=== PATIENT | female | born 1935 | race African-American/Black ===

== ENCOUNTER → 2016-07-05 | Outpatient (CLI) | payer MEDICARE, BC, OTHER | LOC: RAD 08:47 | PROVIDERS: ATTEND Internal Medicine Gastroenterology | DX: R10.9 Unspecified abdominal pain (principal) | CPT/HCPCS: 74181 ==

== ENCOUNTER → 2016-09-26 | Outpatient (CLI) | payer MEDICARE, BC, OTHER | LOC: OD 17:38 | PROVIDERS: ATTEND Internal Medicine Geriatric Medicine | DX: N39.0 Urinary tract infection, site not specified (principal) | CPT/HCPCS: 87086 ==

== ENCOUNTER 2017-04-23 15:24 | Inpatient (IN) | payer MEDICARE, BC, OTHER ==
[2017-04-23] MEDS ORDERED: ACETAMINOPHEN 325 MG TABLET PO PRN (15:59)
[2017-04-23 16:47] LABS: ABSOLUTE LYMPHOCYTES (AUTO) 1.5 10^3/uL (0.5-4.7); ABSOLUTE MONOCYTES (AUTO) 1.9 10^3/uL (0.1-1.4); ABSOLUTE NEUT (AUTO) 15.1 10^3/uL (1.7-8.2); BASOPHILS % (AUTO) 0.1 % (0-2); HEMATOCRIT 30.5 % (36.0-47.0); HEMOGLOBIN 9.9 g/dL (12.0-15.5); HGB HCT DIFFERENCE -0.8; LYMPHOCYTES % (AUTO) 8.3 % (13-45); MEAN CORPUSCULAR HGB CONC 32.3 g/dL (32.0-36.0); MEAN CORPUSCULAR VOLUME 90 fl (80-97); MONOCYTES % (AUTO) 10.4 % (3-13); RED BLOOD COUNT 3.39 10^6/uL (3.72-5.28); RED CELL DISTRIBUTION WIDTH 13.5 % (11.5-14.0); SEGMENTED NEUTROPHILS % (AUTO) 81.2 % (42-78); WHITE BLOOD COUNT 18.5 10^3/uL (4.0-10.5)
[2017-04-23] MEDS ORDERED: CEFTRIAXONE 1 GM/D5W RTU 1 GM/50 ML RTUPB IV ONE (17:00)
[2017-04-23 17:10] LABS: ALANINE AMINOTRANSFERASE 48 U/L (9-52); ALKALINE PHOSPHATASE 95 U/L (38-126); ANION GAP 13 (5-19); ASPARTATE AMINO TRANSFERASE 36 U/L (14-36); BILIRUBIN,DIRECT 0.3 mg/dL (0.0-0.4); BILIRUBIN,TOTAL 0.3 mg/dL (0.2-1.3); BLOOD UREA NITROGEN 37 mg/dL (7-20); CARBON DIOXIDE 25 mmol/L (22-30); CHLORIDE 107 mmol/L (98-107); CREATININE RESULT 1.08 mg/dL (0.52-1.25); GLUCOSE 89 mg/dL (75-110); POTASSIUM 4.3 mmol/L (3.6-5.0); SODIUM 145.3 mmol/L (137-145); TOTAL PROTEIN 6.5 g/dL (6.3-8.2)
--- NOTE | 2017-04-23 17:17 | RADIOLOGY REPORT (SQ) ---
EXAM DESCRIPTION: CHEST PA/LAT COMPLETED DATE/TIME: 04/23/2017 5:01 pm REASON FOR STUDY: chest pain COMPARISON: None. EXAM PARAMETERS: NUMBER OF VIEWS: two views TECHNIQUE: Digital Frontal and Lateral radiographic views of the chest acquired. RADIATION DOSE: NA LIMITATIONS: none FINDINGS: LUNGS AND PLEURA: No opacities, masses or pneumothorax. No pleural effusion. MEDIASTINUM AND HILAR STRUCTURES: No masses or contour abnormalities. HEART AND VASCULAR STRUCTURES: Heart normal size. No evidence for failure. BONES: No acute findings. HARDWARE: None in the chest. OTHER: No other significant finding. IMPRESSION: NO SIGNIFICANT RADIOGRAPHIC FINDING IN THE CHEST. TECHNICAL DOCUMENTATION: JOB ID: [id number] [employer]- All Rights Reserved
[2017-04-23] MEDS: NORMAL SALINE 1000 ML 1,000 ML IV PRN (18:26)
--- NOTE | 2017-04-23 18:46 | PDOC H&P ---
History of Present Illness Admission Date/PCP: 04/23/17 15:24 ELIZABETHFAISAL WATTS Patient complains of: Malodor to urine and not her usual self History of Present Illness: KATRIN FELTON is a 82 year old female know to my practice who presented to the office earlier today for routine follow up for her morbidities management but caregiver reported worsening odor and cloudiness to her urine. The career services representative reported that the patient have not been her usual self. No reported fever but experience chills and cold more than usual in recent time. No nausea or vomiting. she denied chest pain or difficulty with breathing. In view of reported symptoms her CBC with differential was completed in the office and reviewed significant leukocytosis at 19.6 K/uL. She was advised admission for further evaluation and management. Past Medical History Psychiatric Medical History: Reports: Depression Social History Smoking Status: Never Smoker - Advance Directive Resuscitation Status: Full Code Family History Parental Family History Reviewed: Yes Children Family History Reviewed: Yes Sibling(s) Family History Reviewed.: Yes Medication/Allergy Home Medications: Atenolol [Tenormin 50 mg Tablet] 50 mg PO DAILY 04/23/17 Azilsartan Med/Chlorthalidone [Edarbyclor 40-12.5 mg Tablet] 1 tab PO DAILY Donepezil HCl [Aricept 5 mg Tablet] 5 mg PO DAILY 04/23/17 Fluoxetine HCl [Prozac] 40 mg PO DAILY 04/23/17 Hydrocodone Bit/Acetaminophen [Hydrocodon-Acetaminophen 5-325] 1 tab PO Q12HP PRN 04/23/17 Hydrocodone Bitartrate [Hysingla ER] 40 mg PO DAILY 04/23/17 Lidocaine [Lidoderm 5% (700 mg) Transdermal Patch] 1 patch TOP DAILY 04/23/17 Mometasone Furoate [Nasonex] 2 spray NASL DAILY 04/23/17 Risperidone [Risperdal] 0.5 mg PO QHS 04/23/17 Simvastatin [Zocor 40 mg Tablet] 40 mg PO DAILY 04/23/17 Allergies/Adverse Reactions: No Known Allergies Allergy (Unverified 04/23/17 16:02) Review of Systems Constitutional: PRESENT: chills. 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 and multiple joints involvment with arthritis, deformity Integumentary: ABSENT: rash, wounds Neurological: PRESENT: confusion Psychiatric: ABSENT: anxiety, depression, homidical ideation, suicidal ideation Hematologic/Lymphatic: ABSENT: easy bleeding, easy bruising, lymphadenopathy Physical Exam Vital Signs: Temp Pulse Resp BP Pulse Ox 98.6 F 60 12 179/69 H 95 04/23/17 16:11 04/23/17 16:11 04/23/17 16:11 04/23/17 16:11 04/23/17 16:11 Intake & Output 04/22/17 04/23/17 04/24/17 06:59 06:59 06:59 Intake Total 250 Balance 250 Weight 86.3 kg General appearance: PRESENT: no acute distress, well-developed, well-nourished Head exam: PRESENT: atraumatic, normocephalic Eye exam: PRESENT: conjunctiva pink, EOMI, PERRLA. ABSENT: scleral icterus Mouth exam: PRESENT: moist Throat exam: ABSENT: post pharyngeal erythema, tonsillar erythema, tonsillar exudate, tonsillogmegaly, other Neck exam: PRESENT: full ROM. ABSENT: carotid bruit, JVD, lymphadenopathy, thyromegaly Respiratory exam: PRESENT: clear to auscultation regina Cardiovascular exam: PRESENT: RRR. ABSENT: diastolic murmur, rubs, systolic murmur Vascular exam: PRESENT: normal capillary refill. ABSENT: pallor GI/Abdominal exam: PRESENT: normal bowel sounds, soft. ABSENT: distended, guarding, mass, organolmegaly, rebound, tenderness Rectal exam: PRESENT: deferred Extremities exam: PRESENT: joint swelling Musculoskeletal exam: PRESENT: deformity Neurological exam: PRESENT: alert - and appropriate in simple responses, awake, abnormal gait - ambulate with wheelwalker and straight cane assistance depending on distance to walk. Psychiatric exam: PRESENT: appropriate affect, normal mood. ABSENT: homicidal ideation, suicidal ideation Skin exam: PRESENT: dry, intact, warm. ABSENT: cyanosis, rash Results Laboratory Results: 04/23/17 16:35 04/23/17 16:35 04/23/17 04/23/17 16:35 16:35 WBC 18.5 H RBC 3.39 L Hgb 9.9 L Hct 30.5 L MCV 90 MCH 29.0 MCHC 32.3 RDW 13.5 Plt Count 229 Seg Neutrophils % 81.2 H Lymphocytes % 8.3 L Monocytes % 10.4 Eosinophils % 0.0 Basophils % 0.1 Absolute Neutrophils 15.1 H Absolute Lymphocytes 1.5 Absolute Monocytes 1.9 H Absolute Eosinophils 0.0 Absolute Basophils 0.0 Sodium 145.3 H Potassium 4.3 Chloride 107 Carbon Dioxide 25 Anion Gap 13 BUN 37 H Creatinine 1.08 Est GFR ( Amer) 59 L Est GFR (Non-Af Amer) 49 L Glucose 89 Calcium 10.0 Total Bilirubin 0.3 AST 36 ALT 48 Alkaline Phosphatase 95 Total Protein 6.5 Albumin 4.0 Impressions: Chest X-Ray 04/23/17 00:00 IMPRESSION: NO SIGNIFICANT RADIOGRAPHIC FINDING IN THE CHEST. Assessment & Plan - Diagnosis (1) Probable sepsis Is this a current diagnosis for this admission?: Yes Plan: See admitting physician orders. (2) HTN (hypertension) Qualifiers: Hypertension type: essential hypertension Qualified Code(s): I10 - Essential (primary) hypertension Is this a current diagnosis for this admission?: Yes Plan: See admitting physician orders. (3) HLD (hyperlipidemia) Qualifiers: Hyperlipidemia type: pure hypercholesterolemia Qualified Code(s): E78.00 - Pure hypercholesterolemia, unspecified; E78.0 - Pure hypercholesterolemia Is this a current diagnosis for this admission?: Yes Plan: See admitting physician orders. (4) Chronic pain syndrome Is this a current diagnosis for this admission?: Yes Plan: See admitting physician orders. (5) Chronic use of opiate for therapeutic purpose Is this a current diagnosis for this admission?: Yes Plan: See admitting physician orders. (6) Senile dementia with psychosis Is this a current diagnosis for this admission?: Yes Plan: See admitting physician orders. (7) CAD S/P percutaneous coronary angioplasty Is this a current diagnosis for this admission?: Yes Plan: See admitting physician orders. (8) Osteoarthritis involving multiple joints on both sides of body Is this a current diagnosis for this admission?: Yes Plan: See admitting physician orders. - Time Time Spent: 50 to 70 Minutes Medications reviewed and adjusted accordingly: Yes Anticipated discharge: Home Within: Other - Inpatient Certification Based on my medical assessment, after consideration of the patient's comorbidities, presenting symptoms, or acuity I expect that the services needed warrant INPATIENT care.: Yes I certify that my determination is in accordance with my understanding of Medicare's requirements for reasonable and necessary INPATIENT services [42 CFR 412.3e].: Yes Medical Necessity: Need Close Monitoring Due to Risk of Patient Decompensation, Need For IV Fluids, Need For Continuous Telemetry Monitoring, Need for IV Antibiotics, Risk of Complication if Not Cared For in Hospital Post Hospital Care: D/C Spacecraft Systems Engineer Documentation - Plan Summary Plan Summary: See admitting physician orders.
[2017-04-23 18:55] LABS: APPEARANCE,URINE CLOUDY; BILIRUBIN,URINE NEGATIVE (NEGATIVE); GLUCOSE, URINE NEGATIVE (NEGATIVE); KETONES,URINE NEGATIVE (NEGATIVE); LEUKOCYTE ESTERASE,URINE LARGE (NEGATIVE); NITRITE,URINE NEGATIVE (NEGATIVE); PROTEIN,URINE 100 mg/dL (NEGATIVE); URINE SPECIFIC GRAVITY 1.015; UROBILINOGEN,URINE NEGATIVE mg/dL (<2.0)
[2017-04-23] MEDS ORDERED: (PENDING PHARMACY ID) (Risperidone [Risperdal] 0.5 MG) PO SCH (22:00)
[2017-04-23] MEDS: HYDROCODONE/ACETAMINOPHEN 5-325 MG TABLET PO PRN (22:21)
[2017-04-23] MEDS: RISPERIDONE 1 MG TABLET PO SCH (22:42)
[2017-04-24] MEDS: LANSOPRAZOLE 30 MG TAB.RAP.DR PO SCH (05:45)
[2017-04-24] MEDS: ENOXAPARIN SODIUM INJ 40 MG/0.4 ML DISP.SYRIN SUBCUT SCH (09:56)
[2017-04-24] MEDS: SIMVASTATIN 40 MG TABLET PO SCH (09:57)
[2017-04-24] MEDS: LIDOCAINE 5% (700 MG) TRANSDERMAL ADH..PATCH TOP SCH (09:57)
[2017-04-24] MEDS: FLUOXETINE HCL 20 MG CAPSULE PO SCH (09:57)
[2017-04-24] MEDS: DONEPEZIL HCL 5 MG TABLET PO SCH (09:57)
[2017-04-24] MEDS: ATENOLOL 50 MG TABLET PO SCH (09:58)
[2017-04-24] MEDS: FLUTICASONE NASAL SPRAY 50 MCG/SPRY 120 SPRAY/16 GM NASL SCH (09:58)
[2017-04-24] MEDS ORDERED: HYDROCODONE BITARTRATE 40 MG PO SCH (10:00)
[2017-04-24] MEDS ORDERED: (PENDING PHARMACY ID) (Azilsartan Med/Chlorthalidone [Edarbyclor 40-12.5 Mg Tablet] 1 TAB) PO SCH (10:00)
[2017-04-24] MEDS ORDERED: (PENDING PHARMACY ID) (Mometasone Furoate [Nasonex] 2 SPRAY) NASL SCH (10:00)
[2017-04-24] MEDS: HYDROCODONE/ACETAMINOPHEN 5-325 MG TABLET PO PRN (15:10)
--- NOTE | 2017-04-24 16:43 | PDOC PROGRESS REPORT ---
Subjective Progress Note for:: 04/24/17 Subjective:: Patient reported continue dysuria with voiding. There is nasal and sinus congestion. No headache or dizziness. No abdominal pain, nausea or vomiting. No chest pain or difficulty with breathing. Physical Exam Vital Signs: Temp Pulse Resp BP Pulse Ox 97.6 F 67 18 164/60 H 94 04/24/17 04:24 04/24/17 14:00 04/24/17 04:24 04/24/17 04:24 04/24/17 04:24 Intake & Output 04/23/17 04/24/17 04/25/17 06:59 06:59 06:59 Intake Total 1070 Output Total 300 Balance 770 Weight 86.3 kg General appearance: PRESENT: no acute distress, cooperative, well-developed, well-nourished Head exam: PRESENT: atraumatic, normocephalic Mouth exam: PRESENT: moist Respiratory exam: PRESENT: clear to auscultation regina, decreased breath sounds - at lung bases Cardiovascular exam: PRESENT: RRR. ABSENT: diastolic murmur, rubs, systolic murmur Vascular exam: PRESENT: normal capillary refill. ABSENT: pallor GI/Abdominal exam: PRESENT: normal bowel sounds, soft. ABSENT: distended, guarding, mass, organolmegaly, rebound, tenderness Extremities exam: ABSENT: pedal edema Musculoskeletal exam: PRESENT: normal inspection Neurological exam: PRESENT: alert - and appropriate in responses, awake Psychiatric exam: PRESENT: appropriate affect, normal mood. ABSENT: homicidal ideation, suicidal ideation Skin exam: PRESENT: dry, intact, warm. ABSENT: cyanosis, rash Results Laboratory Results: 04/23/17 16:35 04/23/17 16:35 04/23/17 04/23/17 04/23/17 16:35 16:35 18:30 WBC 18.5 H RBC 3.39 L Hgb 9.9 L Hct 30.5 L MCV 90 MCH 29.0 MCHC 32.3 RDW 13.5 Plt Count 229 Seg Neutrophils % 81.2 H Lymphocytes % 8.3 L Monocytes % 10.4 Eosinophils % 0.0 Basophils % 0.1 Absolute Neutrophils 15.1 H Absolute Lymphocytes 1.5 Absolute Monocytes 1.9 H Absolute Eosinophils 0.0 Absolute Basophils 0.0 Sodium 145.3 H Potassium 4.3 Chloride 107 Carbon Dioxide 25 Anion Gap 13 BUN 37 H Creatinine 1.08 Est GFR ( Amer) 59 L Est GFR (Non-Af Amer) 49 L Glucose 89 Calcium 10.0 Total Bilirubin 0.3 AST 36 ALT 48 Alkaline Phosphatase 95 Total Protein 6.5 Albumin 4.0 Urine Color YELLOW Urine Appearance CLOUDY Urine pH 5.0 Ur Specific [place] 1.015 Urine Protein 100 H Urine Glucose (UA) NEGATIVE Urine Ketones NEGATIVE Urine Blood NEGATIVE Urine Nitrite NEGATIVE Ur Leukocyte Esterase LARGE H Urine WBC (Auto) 103 Urine RBC (Auto) 2 Impressions: Chest X-Ray 04/23/17 00:00 IMPRESSION: NO SIGNIFICANT RADIOGRAPHIC FINDING IN THE CHEST. Assessment & Plan - Diagnosis (1) Probable sepsis Is this a current diagnosis for this admission?: Yes Plan: Due to Gram negative greg organism. Organism identification and sensitivity is pending at this time. Continue IV Rocephin coverage. Follow up on urine and blood culture findings. (2) HTN (hypertension) Qualifiers: Hypertension type: essential hypertension Qualified Code(s): I10 - Essential (primary) hypertension Is this a current diagnosis for this admission?: Yes (3) HLD (hyperlipidemia) Qualifiers: Hyperlipidemia type: pure hypercholesterolemia Qualified Code(s): E78.00 - Pure hypercholesterolemia, unspecified; E78.0 - Pure hypercholesterolemia Is this a current diagnosis for this admission?: Yes (4) Chronic pain syndrome Is this a current diagnosis for this admission?: Yes (5) Chronic use of opiate for therapeutic purpose Is this a current diagnosis for this admission?: Yes (6) Senile dementia with psychosis Is this a current diagnosis for this admission?: Yes (7) CAD S/P percutaneous coronary angioplasty Is this a current diagnosis for this admission?: Yes (8) Osteoarthritis involving multiple joints on both sides of body Is this a current diagnosis for this admission?: Yes (9) Allergic rhinitis, seasonal Qualifiers: Chronicity: unspecified Allergic rhinitis trigger: unspecified Qualified Code(s): J30.2 - Other seasonal allergic rhinitis Is this a current diagnosis for this admission?: Yes Plan: Continue on Fluticasone nasal spray therapy. Start on Ipratropium 0.6% nasal spray for congestion. Maintain on all other current medication management. - Time Time Spent with patient: 25-34 minutes Medications reviewed and adjusted accordingly: Yes Anticipated discharge: Home Within: Other - Inpatient Certification Based on my medical assessment, after consideration of the patient's comorbidities, presenting symptoms, or acuity I expect that the services needed warrant INPATIENT care.: Yes I certify that my determination is in accordance with my understanding of Medicare's requirements for reasonable and necessary INPATIENT services [42 CFR 412.3e].: Yes Medical Necessity: Need Close Monitoring Due to Risk of Patient Decompensation, Need For IV Fluids, Need For Continuous Telemetry Monitoring, Need for IV Antibiotics, Risk of Complication if Not Cared For in Hospital Post Hospital Care: D/C Game Agent Documentation - Plan Summary Plan Summary: Obtain CBC with diff, BMP. Continue current antibiotic coverage. See attending physician orders.
[2017-04-24 17:35] LABS: ANION GAP 9 (5-19); BLOOD UREA NITROGEN 28 mg/dL (7-20); CALCIUM 9.3 mg/dL (8.4-10.2); CARBON DIOXIDE 26 mmol/L (22-30); CHLORIDE 107 mmol/L (98-107); CREATININE RESULT 0.86 mg/dL (0.52-1.25); GLUCOSE 101 mg/dL (75-110); POTASSIUM 4.2 mmol/L (3.6-5.0); SODIUM 142.4 mmol/L (137-145)
[2017-04-24] MEDS: IPRATROPIUM BROMIDE 0.06% NASAL SPRAY 15 ML NASL SCH (18:01)
[2017-04-24] MEDS: CEFTRIAXONE 1 GM/D5W RTU 1 GM/50 ML RTUPB IV SCH (18:01)
[2017-04-24 18:48] LABS: ABSOLUTE BASOPHILS # (AUTO) 0.1 10^3/uL (0.0-0.2); ABSOLUTE EOSINOPHILS # (AUTO) 0.1 10^3/uL (0.0-0.6); ABSOLUTE LYMPHOCYTES (AUTO) 2.8 10^3/uL (0.5-4.7); ABSOLUTE MONOCYTES (AUTO) 1.3 10^3/uL (0.1-1.4); ABSOLUTE NEUT (AUTO) 7.7 10^3/uL (1.7-8.2); BASOPHILS % (AUTO) 0.5 % (0-2); EOSINOPHILS % (AUTO) 0.6 % (0-6); HEMOGLOBIN 10.2 g/dL (12.0-15.5); HGB HCT DIFFERENCE -0.4; LYMPHOCYTES % (AUTO) 23.4 % (13-45); MEAN CORPUSCULAR HEMOGLOBIN 29.4 pg (27.0-33.4); MEAN CORPUSCULAR HGB CONC 32.9 g/dL (32.0-36.0); MEAN CORPUSCULAR VOLUME 89 fl (80-97); MONOCYTES % (AUTO) 10.8 % (3-13); RED BLOOD COUNT 3.47 10^6/uL (3.72-5.28); RED CELL DISTRIBUTION WIDTH 13.1 % (11.5-14.0); SEGMENTED NEUTROPHILS % (AUTO) 64.7 % (42-78); WHITE BLOOD COUNT 11.8 10^3/uL (4.0-10.5)
[2017-04-24] MEDS: RISPERIDONE 1 MG TABLET PO SCH (21:46)
[2017-04-24] MEDS: NORMAL SALINE 1000 ML 1,000 ML IV PRN (21:48)
[2017-04-25] MEDS: LANSOPRAZOLE 30 MG TAB.RAP.DR PO SCH (05:26)
[2017-04-25] MEDS: IPRATROPIUM BROMIDE 0.06% NASAL SPRAY 15 ML NASL SCH ×3 (09:15→17:40)
[2017-04-25] MEDS: FLUOXETINE HCL 20 MG CAPSULE PO SCH (09:15)
[2017-04-25] MEDS: FLUTICASONE NASAL SPRAY 50 MCG/SPRY 120 SPRAY/16 GM NASL SCH (09:15)
[2017-04-25] MEDS: LIDOCAINE 5% (700 MG) TRANSDERMAL ADH..PATCH TOP SCH (09:15)
[2017-04-25] MEDS: ATENOLOL 50 MG TABLET PO SCH (09:15)
[2017-04-25] MEDS: ENOXAPARIN SODIUM INJ 40 MG/0.4 ML DISP.SYRIN SUBCUT SCH (09:15)
[2017-04-25] MEDS: DONEPEZIL HCL 5 MG TABLET PO SCH (09:15)
[2017-04-25] MEDS: SIMVASTATIN 40 MG TABLET PO SCH (09:15)
[2017-04-25] MEDS: HYDROCODONE/ACETAMINOPHEN 5-325 MG TABLET PO PRN ×2 (09:16→21:32)
--- NOTE | 2017-04-25 14:14 | PDOC PROGRESS REPORT ---
Subjective Progress Note for:: 04/25/17 Subjective:: Patient denied any fever or chills. No headache or dizziness. No abdominal pain , nausea or vomiting. No chest pain or difficulty with breathing. Blood pressure management remain a concern due to inadvertently missed administration of her Edarbyclor that is not on the hospital formulary. Physical Exam Vital Signs: Temp Pulse Resp BP Pulse Ox 98.9 F 71 14 174/74 H 94 04/25/17 11:48 04/25/17 11:48 04/25/17 11:48 04/25/17 11:48 04/25/17 11:48 Intake & Output 04/24/17 04/25/17 04/26/17 06:59 06:59 06:59 Intake Total 1070 1750 Output Total 300 400 Balance 770 1350 Weight 86.3 kg Physical Exam: General appearance: PRESENT: no acute distress, cooperative, well-developed, well-nourished Head exam: PRESENT: atraumatic, normocephalic Mouth exam: PRESENT: moist Respiratory exam: PRESENT: clear to auscultation regina, decreased breath sounds - at lung bases Cardiovascular exam: PRESENT: RRR. ABSENT: diastolic murmur, rubs, systolic murmur Vascular exam: PRESENT: normal capillary refill. ABSENT: pallor GI/Abdominal exam: PRESENT: normal bowel sounds, soft. ABSENT: distended, guarding, mass, organomegaly, rebound, tenderness Extremities exam: ABSENT: pedal edema Musculoskeletal exam: PRESENT: normal inspection Neurological exam: PRESENT: alert - and appropriate in responses, awake Psychiatric exam: PRESENT: appropriate affect, normal mood. ABSENT: homicidal ideation, suicidal ideation Skin exam: PRESENT: dry, intact, warm. ABSENT: cyanosis, rash Results Laboratory Results: 04/24/17 18:39 04/24/17 16:55 04/24/17 04/24/17 04/24/17 16:55 16:55 18:39 WBC Cancelled 11.8 H RBC Cancelled 3.47 L Hgb Cancelled 10.2 L Hct Cancelled 31.0 L MCV Cancelled 89 MCH Cancelled 29.4 MCHC Cancelled 32.9 RDW Cancelled 13.1 Plt Count Cancelled 219 Seg Neutrophils % Cancelled 64.7 Lymphocytes % Cancelled 23.4 Monocytes % Cancelled 10.8 Eosinophils % Cancelled 0.6 Basophils % Cancelled 0.5 Absolute Neutrophils Cancelled 7.7 Absolute Lymphocytes Cancelled 2.8 Absolute Monocytes Cancelled 1.3 Absolute Eosinophils Cancelled 0.1 Absolute Basophils Cancelled 0.1 Sodium 142.4 Potassium 4.2 Chloride 107 Carbon Dioxide 26 Anion Gap 9 BUN 28 H Creatinine 0.86 Est GFR ( Amer) > 60 Est GFR (Non-Af Amer) > 60 Glucose 101 Calcium 9.3 04/23/17 18:30 Clean Catch Midstream Urine Culture - Final Escherichia Coli Impressions: Chest X-Ray 04/23/17 00:00 IMPRESSION: NO SIGNIFICANT RADIOGRAPHIC FINDING IN THE CHEST. Assessment & Plan - Diagnosis (1) Probable sepsis Is this a current diagnosis for this admission?: Yes (2) HTN (hypertension) Qualifiers: Hypertension type: essential hypertension Qualified Code(s): I10 - Essential (primary) hypertension Is this a current diagnosis for this admission?: Yes (3) HLD (hyperlipidemia) Qualifiers: Hyperlipidemia type: pure hypercholesterolemia Qualified Code(s): E78.00 - Pure hypercholesterolemia, unspecified; E78.0 - Pure hypercholesterolemia Is this a current diagnosis for this admission?: Yes (4) Chronic pain syndrome Is this a current diagnosis for this admission?: Yes (5) Chronic use of opiate for therapeutic purpose Is this a current diagnosis for this admission?: Yes (6) Senile dementia with psychosis Is this a current diagnosis for this admission?: Yes (7) CAD S/P percutaneous coronary angioplasty Is this a current diagnosis for this admission?: Yes (8) Osteoarthritis involving multiple joints on both sides of body Is this a current diagnosis for this admission?: Yes (9) Allergic rhinitis, seasonal Qualifiers: Chronicity: unspecified Allergic rhinitis trigger: unspecified Qualified Code(s): J30.2 - Other seasonal allergic rhinitis Is this a current diagnosis for this admission?: Yes (10) E. coli urinary tract infection Is this a current diagnosis for this admission?: Yes Plan: Continue on current IV antibiotic coverage. Monitor her leukocytosis and temperature. Consider change to oral formulation in next 24 hours. - Time Time Spent with patient: 25-34 minutes Medications reviewed and adjusted accordingly: Yes Anticipated discharge: Home Within: within 48 hours - Inpatient Certification Based on my medical assessment, after consideration of the patient's comorbidities, presenting symptoms, or acuity I expect that the services needed warrant INPATIENT care.: Yes I certify that my determination is in accordance with my understanding of Medicare's requirements for reasonable and necessary INPATIENT services [42 CFR 412.3e].: Yes Medical Necessity: Need Close Monitoring Due to Risk of Patient Decompensation, Need For IV Fluids, Need For Continuous Telemetry Monitoring, Need for IV Antibiotics, Risk of Complication if Not Cared For in Hospital Post Hospital Care: D/C Global Cto Documentation - Plan Summary Plan Summary: See attending physician orders.
[2017-04-25] MEDS: CEFTRIAXONE 1 GM/D5W RTU 1 GM/50 ML RTUPB IV SCH (17:40)
[2017-04-25] MEDS: RISPERIDONE 1 MG TABLET PO SCH (21:32)
[2017-04-26] MEDS: NORMAL SALINE 1000 ML 1,000 ML IV PRN (01:26)
[2017-04-26 04:21] LABS: ABSOLUTE EOSINOPHILS # (AUTO) 0.3 10^3/uL (0.0-0.6); ABSOLUTE LYMPHOCYTES (AUTO) 3.5 10^3/uL (0.5-4.7); ABSOLUTE MONOCYTES (AUTO) 1.1 10^3/uL (0.1-1.4); ABSOLUTE NEUT (AUTO) 6.4 10^3/uL (1.7-8.2); BASOPHILS % (AUTO) 0.4 % (0-2); HEMATOCRIT 29.9 % (36.0-47.0); HEMOGLOBIN 9.4 g/dL (12.0-15.5); HGB HCT DIFFERENCE -1.7; LYMPHOCYTES % (AUTO) 30.6 % (13-45); MEAN CORPUSCULAR HEMOGLOBIN 28.4 pg (27.0-33.4); MEAN CORPUSCULAR HGB CONC 31.6 g/dL (32.0-36.0); MEAN CORPUSCULAR VOLUME 90 fl (80-97); RED BLOOD COUNT 3.33 10^6/uL (3.72-5.28); RED CELL DISTRIBUTION WIDTH 13.5 % (11.5-14.0); WHITE BLOOD COUNT 11.5 10^3/uL (4.0-10.5)
[2017-04-26] MEDS: LANSOPRAZOLE 30 MG TAB.RAP.DR PO SCH (05:28)
[2017-04-26] MEDS: ATENOLOL 50 MG TABLET PO SCH (08:42)
[2017-04-26] MEDS: AZILSARTAN MED PO SCH (08:42)
[2017-04-26] MEDS: CHLORTHALIDONE PO SCH (08:42)
[2017-04-26] MEDS: DONEPEZIL HCL 5 MG TABLET PO SCH (08:43)
[2017-04-26] MEDS: FLUOXETINE HCL 20 MG CAPSULE PO SCH (08:44)
[2017-04-26] MEDS: SIMVASTATIN 40 MG TABLET PO SCH (08:44)
[2017-04-26] MEDS: LIDOCAINE 5% (700 MG) TRANSDERMAL ADH..PATCH TOP SCH (08:45)
[2017-04-26] MEDS: IPRATROPIUM BROMIDE 0.06% NASAL SPRAY 15 ML NASL SCH ×3 (08:45→17:44)
[2017-04-26] MEDS: FLUTICASONE NASAL SPRAY 50 MCG/SPRY 120 SPRAY/16 GM NASL SCH (08:45)
[2017-04-26] MEDS: ENOXAPARIN SODIUM INJ 40 MG/0.4 ML DISP.SYRIN SUBCUT SCH (08:45)
--- NOTE | 2017-04-26 11:50 | PDOC PROGRESS REPORT ---
Subjective Progress Note for:: 04/26/17 Subjective:: Her blood pressure elevation noted this morning necessitating early administration of her blood pressure medication this morning. Daughter at bedside reported that her blood pressure have been very good at home on her current medication regimen. She denied chest pain or difficulty with her breathing. No fever or chills. No abdominal pain, nausea, or vomiting. Physical Exam Vital Signs: Temp Pulse Resp BP Pulse Ox 97.4 F 62 14 200/72 H 94 04/26/17 07:23 04/26/17 07:23 04/26/17 07:23 04/26/17 07:23 04/26/17 07:23 Intake & Output 04/25/17 04/26/17 04/27/17 06:59 06:59 06:59 Intake Total 1750 2622 Output Total 400 400 Balance 1350 2222 Physical Exam: General appearance: PRESENT: no acute distress, cooperative, well-developed, well-nourished Head exam: PRESENT: atraumatic, normocephalic Mouth exam: PRESENT: moist Respiratory exam: PRESENT: clear to auscultation regina. Cardiovascular exam: PRESENT: RRR. ABSENT: diastolic murmur, rubs, systolic murmur Vascular exam: PRESENT: normal capillary refill. ABSENT: pallor GI/Abdominal exam: PRESENT: normal bowel sounds, soft. ABSENT: distended, guarding, mass, organomegaly, rebound, tenderness Extremities exam: ABSENT: pedal edema Musculoskeletal exam: PRESENT: normal inspection Neurological exam: PRESENT: alert - and appropriate in responses, awake Psychiatric exam: PRESENT: appropriate affect, normal mood. ABSENT: homicidal ideation, suicidal ideation Skin exam: PRESENT: dry, intact, warm. ABSENT: cyanosis, rash Results Laboratory Results: 04/26/17 03:48 04/24/17 16:55 04/26/17 03:48 WBC 11.5 H RBC 3.33 L Hgb 9.4 L Hct 29.9 L MCV 90 MCH 28.4 MCHC 31.6 L RDW 13.5 Plt Count 196 Seg Neutrophils % 56.0 Lymphocytes % 30.6 Monocytes % 10.0 Eosinophils % 3.0 Basophils % 0.4 Absolute Neutrophils 6.4 Absolute Lymphocytes 3.5 Absolute Monocytes 1.1 Absolute Eosinophils 0.3 Absolute Basophils 0.0 04/23/17 18:30 Clean Catch Midstream Urine Culture - Final Escherichia Coli Impressions: Chest X-Ray 04/23/17 00:00 IMPRESSION: NO SIGNIFICANT RADIOGRAPHIC FINDING IN THE CHEST. Assessment & Plan - Diagnosis (1) Probable sepsis Is this a current diagnosis for this admission?: Yes (2) HTN (hypertension) Qualifiers: Hypertension type: essential hypertension Qualified Code(s): I10 - Essential (primary) hypertension Is this a current diagnosis for this admission?: Yes (3) HLD (hyperlipidemia) Qualifiers: Hyperlipidemia type: pure hypercholesterolemia Qualified Code(s): E78.00 - Pure hypercholesterolemia, unspecified; E78.0 - Pure hypercholesterolemia Is this a current diagnosis for this admission?: Yes (4) Chronic pain syndrome Is this a current diagnosis for this admission?: Yes (5) Chronic use of opiate for therapeutic purpose Is this a current diagnosis for this admission?: Yes (6) Senile dementia with psychosis Is this a current diagnosis for this admission?: Yes (7) CAD S/P percutaneous coronary angioplasty Is this a current diagnosis for this admission?: Yes (8) Osteoarthritis involving multiple joints on both sides of body Is this a current diagnosis for this admission?: Yes (9) Allergic rhinitis, seasonal Qualifiers: Chronicity: unspecified Allergic rhinitis trigger: unspecified Qualified Code(s): J30.2 - Other seasonal allergic rhinitis Is this a current diagnosis for this admission?: Yes (10) E. coli urinary tract infection Is this a current diagnosis for this admission?: Yes - Time Time Spent with patient: 25-34 minutes Medications reviewed and adjusted accordingly: Yes Anticipated discharge: Home with Homehealth Within: within 48 hours - Inpatient Certification Based on my medical assessment, after consideration of the patient's comorbidities, presenting symptoms, or acuity I expect that the services needed warrant INPATIENT care.: Yes I certify that my determination is in accordance with my understanding of Medicare's requirements for reasonable and necessary INPATIENT services [42 CFR 412.3e].: Yes Medical Necessity: Need Close Monitoring Due to Risk of Patient Decompensation, Need For IV Fluids, Need For Continuous Telemetry Monitoring, Need for IV Antibiotics, Risk of Complication if Not Cared For in Hospital Post Hospital Care: D/C Power Washer Documentation - Plan Summary Plan Summary: D/C IV fluid infusion. Encourage adequate oral fluid intake. Continue on IV Rocephin coverage. Start on oral Levofloxacin 500mg po daily. Follow up on blood culture findings.
[2017-04-26] MEDS: AMOXICILLIN TR/POT CLAVULANATE 500-125 MG TAB PO SCH ×2 (13:43→22:51)
[2017-04-26] MEDS ORDERED: HYDRALAZINE HCL INJ/PF 20 MG/1 ML SDV ONE (18:43)
[2017-04-26] MEDS ORDERED: HYDRALAZINE HCL INJ/PF 20 MG/1 ML SDV IV ONE (19:15)
[2017-04-26] MEDS: HYDROCODONE/ACETAMINOPHEN 5-325 MG TABLET PO PRN (22:49)
[2017-04-26] MEDS: RISPERIDONE 1 MG TABLET PO SCH (22:51)
[2017-04-27] MEDS: AMOXICILLIN TR/POT CLAVULANATE 500-125 MG TAB PO SCH (06:28)
[2017-04-27] MEDS: LANSOPRAZOLE 30 MG TAB.RAP.DR PO SCH (06:28)
[2017-04-27] MEDS: ENOXAPARIN SODIUM INJ 40 MG/0.4 ML DISP.SYRIN SUBCUT SCH (08:57)
[2017-04-27] MEDS: CHLORTHALIDONE PO SCH (09:01)
[2017-04-27] MEDS: AZILSARTAN MED PO SCH (09:01)
[2017-04-27] MEDS: ATENOLOL 50 MG TABLET PO SCH (09:01)
[2017-04-27] MEDS: LIDOCAINE 5% (700 MG) TRANSDERMAL ADH..PATCH TOP SCH (09:02)
[2017-04-27] MEDS: FLUTICASONE NASAL SPRAY 50 MCG/SPRY 120 SPRAY/16 GM NASL SCH (09:02)
[2017-04-27] MEDS: DONEPEZIL HCL 5 MG TABLET PO SCH (09:02)
[2017-04-27] MEDS: IPRATROPIUM BROMIDE 0.06% NASAL SPRAY 15 ML NASL SCH (09:02)
[2017-04-27] MEDS: FLUOXETINE HCL 20 MG CAPSULE PO SCH (09:02)
[2017-04-27] MEDS: SIMVASTATIN 40 MG TABLET PO SCH (09:03)
[2017-04-27] MEDS: HYDROCODONE/ACETAMINOPHEN 5-325 MG TABLET PO PRN (11:29)
[2017-04-27 12:56] LABS: ABSOLUTE BASOPHILS # (AUTO) 0.1 10^3/uL (0.0-0.2); ABSOLUTE EOSINOPHILS # (AUTO) 0.2 10^3/uL (0.0-0.6); ABSOLUTE LYMPHOCYTES (AUTO) 1.9 10^3/uL (0.5-4.7); ABSOLUTE NEUT (AUTO) 7.3 10^3/uL (1.7-8.2); BASOPHILS % (AUTO) 0.5 % (0-2); EOSINOPHILS % (AUTO) 2.1 % (0-6); HEMATOCRIT 32.1 % (36.0-47.0); HEMOGLOBIN 10.4 g/dL (12.0-15.5); HGB HCT DIFFERENCE -0.9; LYMPHOCYTES % (AUTO) 18.1 % (13-45); MEAN CORPUSCULAR HEMOGLOBIN 29.1 pg (27.0-33.4); MEAN CORPUSCULAR HGB CONC 32.5 g/dL (32.0-36.0); MEAN CORPUSCULAR VOLUME 90 fl (80-97); MONOCYTES % (AUTO) 9.2 % (3-13); RED BLOOD COUNT 3.58 10^6/uL (3.72-5.28); RED CELL DISTRIBUTION WIDTH 13.1 % (11.5-14.0); SEGMENTED NEUTROPHILS % (AUTO) 70.1 % (42-78); WHITE BLOOD COUNT 10.4 10^3/uL (4.0-10.5)
[2017-04-27 13:08] VITALS: BP 165/52
[2017-04-27 13:19] LABS: ANION GAP 13 (5-19); BLOOD UREA NITROGEN 17 mg/dL (7-20); CALCIUM 9.5 mg/dL (8.4-10.2); CARBON DIOXIDE 27 mmol/L (22-30); CHLORIDE 104 mmol/L (98-107); CREATININE RESULT 0.94 mg/dL (0.52-1.25); GLUCOSE 108 mg/dL (75-110); POTASSIUM 3.7 mmol/L (3.6-5.0); SODIUM 143.8 mmol/L (137-145)
--- NOTE | 2017-04-27 13:34 | PDOC DISCHARGE SUMMARY ---
General - Admit/Disc Date/PCP Admission Date/Primary Care Provider: 04/23/17 15:24 ELIZABETHFAISAL WATTS Discharge Date: 04/27/17 - Discharge Diagnosis (1) E. coli urinary tract infection Is this a current diagnosis for this admission?: Yes Summary: Improving on oral antibiotic therapy. (2) Probable sepsis Is this a current diagnosis for this admission?: Yes (3) HTN (hypertension) Is this a current diagnosis for this admission?: Yes (4) HLD (hyperlipidemia) Is this a current diagnosis for this admission?: Yes (5) Chronic pain syndrome Is this a current diagnosis for this admission?: Yes (6) Chronic use of opiate for therapeutic purpose Is this a current diagnosis for this admission?: Yes (7) Senile dementia with psychosis Is this a current diagnosis for this admission?: Yes (8) CAD S/P percutaneous coronary angioplasty Is this a current diagnosis for this admission?: Yes (9) Osteoarthritis involving multiple joints on both sides of body Is this a current diagnosis for this admission?: Yes (10) Allergic rhinitis, seasonal Is this a current diagnosis for this admission?: Yes - Additional Information Resuscitation Status: Full Code Home Medications: Atenolol [Tenormin 50 mg Tablet] 50 mg PO DAILY 04/23/17 Azilsartan Med/Chlorthalidone [Edarbyclor 40-12.5 mg Tablet] 1 tab PO DAILY Donepezil HCl [Aricept 5 mg Tablet] 5 mg PO DAILY 04/23/17 Fluoxetine HCl [Prozac] 40 mg PO DAILY 04/23/17 Hydrocodone Bit/Acetaminophen [Hydrocodon-Acetaminophen 5-325] 1 tab PO Q12HP PRN 04/23/17 Hydrocodone Bitartrate [Hysingla ER] 40 mg PO DAILY 04/23/17 Lidocaine [Lidoderm 5% (700 mg) Transdermal Patch] 1 patch TOP DAILY 04/23/17 Mometasone Furoate [Nasonex] 2 spray NASL DAILY 04/23/17 Risperidone [Risperdal] 0.5 mg PO QHS 04/23/17 Simvastatin [Zocor 40 mg Tablet] 40 mg PO DAILY 04/23/17 History of Present Illness History of Present Illness: KATRIN FELTON is a 82 year old female know to my practice who presented to the office earlier today for routine follow up for her morbidities management but caregiver reported worsening odor and cloudiness to her urine. The child care attendant reported that the patient have not been her usual self. No reported fever but experience chills and cold more than usual in recent time. No nausea or vomiting. she denied chest pain or difficulty with breathing. In view of reported symptoms her CBC with differential was completed in the office and reviewed significant leukocytosis at 19.6 K/uL. She was advised admission for further evaluation and management. Hospital Course Hospital Course: She was admitted due to significant leukocytosis with abnormal urinalysis. Her urine culture eventually grew E. coli. She was initially managed with IV Rocephin but transition to oral Augmentin based on urine culture sensitivity report. Her leukocytosis did resolved. No fever or chills. No nausea or vomiting. Tolerating oral feeding. She is agreeable to discharge home today. She will follow up in the office as instructed upon discharge. Physical Exam Vital Signs: Temp Pulse Resp BP Pulse Ox 98.8 F 69 18 165/52 H 93 04/27/17 13:07 04/27/17 13:07 04/27/17 13:07 04/27/17 13:07 04/27/17 13:07 Intake & Output 04/26/17 04/27/17 04/28/17 06:59 06:59 06:59 Intake Total 2622 1650 Output Total 400 Balance 2222 1650 Weight 79.1 kg Physical Exam: General appearance: PRESENT: no acute distress, cooperative, well-developed, well-nourished Head exam: PRESENT: atraumatic, normocephalic Mouth exam: PRESENT: moist Respiratory exam: PRESENT: clear to auscultation regina. Cardiovascular exam: PRESENT: RRR. ABSENT: diastolic murmur, rubs, systolic murmur Vascular exam: PRESENT: normal capillary refill. ABSENT: pallor GI/Abdominal exam: PRESENT: normal bowel sounds, soft. ABSENT: distended, guarding, mass, organomegaly, rebound, tenderness Extremities exam: ABSENT: pedal edema Musculoskeletal exam: PRESENT: normal inspection Neurological exam: PRESENT: alert - and appropriate in responses, awake Psychiatric exam: PRESENT: appropriate affect, normal mood. ABSENT: homicidal ideation, suicidal ideation Skin exam: PRESENT: dry, intact, warm. ABSENT: cyanosis, rash Results Laboratory Results: 04/27/17 12:14 04/27/17 12:14 04/27/17 04/27/17 12:14 12:14 WBC 10.4 RBC 3.58 L Hgb 10.4 L Hct 32.1 L MCV 90 MCH 29.1 MCHC 32.5 RDW 13.1 Plt Count 223 Seg Neutrophils % 70.1 Lymphocytes % 18.1 Monocytes % 9.2 Eosinophils % 2.1 Basophils % 0.5 Absolute Neutrophils 7.3 Absolute Lymphocytes 1.9 Absolute Monocytes 1.0 Absolute Eosinophils 0.2 Absolute Basophils 0.1 Sodium 143.8 Potassium 3.7 Chloride 104 Carbon Dioxide 27 Anion Gap 13 BUN 17 Creatinine 0.94 Est GFR ( Amer) > 60 Est GFR (Non-Af Amer) 57 L Glucose 108 Calcium 9.5 Impressions: Chest X-Ray 04/23/17 00:00 IMPRESSION: NO SIGNIFICANT RADIOGRAPHIC FINDING IN THE CHEST. Qualifiers PATEINT BEING DISCHARGED WITH ANY OF THE FOLLOWING DIAGNOSIS?: No Plan Discharge Plan: D/C home today. Follow up in the office as instructed at time of discharge. I instructed daughter at bedside to monitor patient's blood pressure at home and present record at office follow up visit. I will review and adjust her hypertension medication management as necessary. Time Spent: Less than 30 Minutes
[2017-04-27] MEDS ORDERED: PHARMACY COMMUNICATION ORDER MC SCH (22:00)
[2017-04-28] MEDS ORDERED: HYDROCODONE BITARTRATE 40 MG PO SCH (10:00)
== END 2017-04-27 13:45 | disposition home health service (06) | DRG 690 ==
LOC: 5 15:24
PROVIDERS: ADMIT Internal Medicine Geriatric Medicine; ATTEND Internal Medicine Geriatric Medicine
DX: N39.0 Urinary tract infection, site not specified (principal); I25.10 Atherosclerotic heart disease of native coronary artery without angina pectoris; F03.90 Unspecified dementia, unspecified severity, without behavioral disturbance, psychotic disturbance, mood disturbance, and anxiety; B96.20 Unspecified Escherichia coli [E. coli] as the cause of diseases classified elsewhere; I10 Essential (primary) hypertension; G89.4 Chronic pain syndrome; M15.0 Primary generalized (osteo)arthritis; F32.9 Major depressive disorder, single episode, unspecified; E78.00 Pure hypercholesterolemia, unspecified; J30.2 Other seasonal allergic rhinitis; Z79.899 Other long term (current) drug therapy; Z79.891 Long term (current) use of opiate analgesic; Z90.49 Acquired absence of other specified parts of digestive tract; Z90.710 Acquired absence of both cervix and uterus
CPT/HCPCS: 36415; 71020; 80048; 80053; 81001; 85025; 87040; 87086; 87088; 87186; J0360; J0696; J1650; J3490; J7030

== ENCOUNTER 2018-01-22 15:36 | Inpatient (IN) | payer MEDICARE, BC, OTHER ==
[2018-01-22] MEDS ORDERED: ACETAMINOPHEN 325 MG TABLET PO ONE (16:02)
--- NOTE | 2018-01-22 16:05 | ER Document Report ---
ED Medical Screen (RME) - General Chief Complaint: Urinary Problem Stated Complaint: ABNORMAL LABS Time Seen by Provider: 01/22/18 16:02 Notes: 10 years old female was sent over by Dr. eisenberg, because of general weakness and lethargy, UTI with 3 day treatment of Augmentin for UTI without improvement. White count was 15,000 initially has gone up to 20,000 today. Coughing on and off. TRAVEL OUTSIDE OF THE [place] IN LAST 30 DAYS: No - Related Data Allergies/Adverse Reactions: No Known Allergies Allergy (Unverified 04/23/17 16:02) Past Medical History Psychiatric Medical History: Reports: Hx Depression - Immunizations History of Influenza Vaccine for 03/2017 - 08/2017 Season: Yes Influenza Administration Date for 03/2017 - 08/2017 Season: 03/08/17 Physical Exam - Vital signs Vitals: Temp Pulse Resp BP Pulse Ox 99.2 F 74 16 112/44 L 95 01/22/18 15:45 01/22/18 15:45 01/22/18 15:45 01/22/18 15:45 01/22/18 15:45 Course - Vital Signs Vital signs: Temp Pulse Resp BP Pulse Ox 99.2 F 74 16 112/44 L 95 01/22/18 15:45 01/22/18 15:45 01/22/18 15:45 01/22/18 15:45 01/22/18 15:45 Doctor's Discharge - Discharge Referrals: ELIZABETH WATTS MD [Primary Care Provider] - Follow up as needed
[2018-01-22 16:58] LABS: ABSOLUTE BASOPHILS # (AUTO) 0.1 10^3/uL (0.0-0.2); ABSOLUTE EOSINOPHILS # (AUTO) 0.1 10^3/uL (0.0-0.6); ABSOLUTE LYMPHOCYTES (AUTO) 2.5 10^3/uL (0.5-4.7); ABSOLUTE NEUT (AUTO) 13.8 10^3/uL (1.7-8.2); BASOPHILS % (AUTO) 0.3 % (0-2); EOSINOPHILS % (AUTO) 0.5 % (0-6); HEMATOCRIT 30.6 % (36.0-47.0); HEMOGLOBIN 9.8 g/dL (12.0-15.5); LYMPHOCYTES % (AUTO) 13.6 % (13-45); MEAN CORPUSCULAR VOLUME 87 fl (80-97); MONOCYTES % (AUTO) 10.9 % (3-13); PLATELET COUNT 228 10^3/uL (150-450); RED BLOOD COUNT 3.51 10^6/uL (3.72-5.28); RED CELL DISTRIBUTION WIDTH 14.2 % (11.5-14.0); SEGMENTED NEUTROPHILS % (AUTO) 74.7 % (42-78); TOTAL CELLS COUNTED % (AUTO) 100 %; WHITE BLOOD COUNT 18.4 10^3/uL (4.0-10.5)
[2018-01-22 17:00] LABS: VENOUS BLOOD BASE EXCESS -1.3 mmol/L; VENOUS BLOOD PCO2 47.1 mmHg (35-63); VENOUS BLOOD PH 7.34 (7.30-7.42)
[2018-01-22 17:11] LABS: INTERNATIONAL RATION (INR) 1.01; PROTHROMBIN TIME 13.8 SEC (11.4-15.4)
[2018-01-22 17:27] LABS: ALANINE AMINOTRANSFERASE 34 U/L (9-52); ALBUMIN 3.7 g/dL (3.5-5.0); ALKALINE PHOSPHATASE 79 U/L (38-126); ANION GAP 13 (5-19); ASPARTATE AMINO TRANSFERASE 34 U/L (14-36); BILIRUBIN,DIRECT 0.3 mg/dL (0.0-0.4); BILIRUBIN,TOTAL 0.3 mg/dL (0.2-1.3); BLOOD UREA NITROGEN 43 mg/dL (7-20); CALCIUM 9.2 mg/dL (8.4-10.2); CARBON DIOXIDE 26 mmol/L (22-30); CHLORIDE 103 mmol/L (98-107); GLUCOSE 184 mg/dL (75-110); POTASSIUM 3.9 mmol/L (3.6-5.0); SODIUM 142.2 mmol/L (137-145); TOTAL PROTEIN 6.5 g/dL (6.3-8.2)
--- NOTE | 2018-01-22 18:38 | EKG REPORT ---
SEVERITY:- NORMAL ECG - SINUS RHYTHM : Confirmed by: Bam Bejarano MD 22-Jan-2018 18:38:21
[2018-01-22] MEDS ORDERED: NORMAL SALINE 1000 ML 1,000 ML IV ONE (21:00)
[2018-01-22] MEDS ORDERED: CEFTRIAXONE INJ 1000 MG VIAL IV ONE (21:00)
[2018-01-22 21:17] LABS: APPEARANCE,URINE SLIGHTLY-CLOUDY; BILIRUBIN,URINE NEGATIVE (NEGATIVE); COLOR,URINE YELLOW; GLUCOSE, URINE NEGATIVE (NEGATIVE); KETONES,URINE NEGATIVE (NEGATIVE); LEUKOCYTE ESTERASE,URINE SMALL (NEGATIVE); NITRITE,URINE NEGATIVE (NEGATIVE); PROTEIN,URINE NEGATIVE (NEGATIVE); URINE SPECIFIC GRAVITY 1.015; UROBILINOGEN,URINE NEGATIVE mg/dL (<2.0)
--- NOTE | 2018-01-22 21:59 | ER Document Report ---
ED General - General Chief Complaint: Urinary Problem Stated Complaint: ABNORMAL LABS Time Seen by Provider: 01/22/18 16:02 Cannot obtain history due to: Dementia Notes: Patient is an 82-year-old female with a past medical history of hypertension, dementia, who presents with concerns of failure of outpatient treatment with oral antibiotics for a urinary tract infection. The patient was diagnosed several days ago but has had a progressive worsening of her confusion prompting the family to bring her to the emergency department. Apparently she was going to be admitted directly by her primary care doctor but there are no beds available upstairs which is why she is coming through the emergency department. The patient herself is unable to provide meaningful history secondary to her baseline dementia. Daughter at the bedside with whom the patient lives states that over the past several days the patient has become more confused than her baseline but has otherwise not appear overall to be significantly ill. No fever , vomiting, diarrhea, cough or sputum production. She has a history of similar symptoms in the past with urinary tract infections. TRAVEL OUTSIDE OF THE [place] IN LAST 30 DAYS: No - Related Data Allergies/Adverse Reactions: No Known Allergies Allergy (Unverified 04/23/17 16:02) Past Medical History - General Information source: Relative - Social History Smoking Status: Never Smoker Frequency of alcohol use: None Drug Abuse: None Lives with: Family Family History: Reviewed & Not Pertinent Patient has suicidal ideation: No Patient has homicidal ideation: No Renal/ Medical History: Denies: Hx Peritoneal Dialysis Psychiatric Medical History: Reports: Hx Depression - Immunizations Hx Pneumococcal Vaccination: 02/07/16 Review of Systems - Review of Systems -: Yes ROS unobtainable due to patient's medical condition Physical Exam - Vital signs Vitals: Temp Pulse Resp BP Pulse Ox 99.2 F 74 16 112/44 L 95 01/22/18 15:45 01/22/18 15:45 01/22/18 15:45 01/22/18 15:45 01/22/18 15:45 Interpretation: Normal Notes: PHYSICAL EXAMINATION: GENERAL: Well-appearing, well-nourished and in no acute distress. HEAD: Atraumatic, normocephalic. EYES: Pupils equal round and reactive to light, extraocular movements intact, sclera anicteric, conjunctiva are normal. ENT: nares patent, oropharynx clear without exudates. Moderately dry mucous membranes. NECK: Normal range of motion, supple without lymphadenopathy LUNGS: Breath sounds clear to auscultation bilaterally and equal. No wheezes rales or rhonchi. HEART: Regular rate and rhythm without murmurs ABDOMEN: Soft, nontender, normoactive bowel sounds. No guarding, no rebound. No masses appreciated. EXTREMITIES: Normal range of motion, no pitting or edema. No cyanosis. NEUROLOGICAL: No focal neurological deficits. Moves all extremities spontaneously and on command. PSYCH: Oriented to person only SKIN: Warm, Dry, normal turgor, no rashes or lesions noted. Course - Re-evaluation Re-evalutation: 01/22/18 21:58 Patient presents with a white count, altered mental status in the setting of a diagnosed UTI as an outpatient that is failing to respond to outpatient antibiotics. Labs do show persistent leukocytosis. Patient is somewhat lethargic but wakes, speaks and is apparently at her baseline per the daughter the bedside. Renal function within acceptable limits. Urinalysis does not appear to show an overt urinary tract infection although this could be compromised by her being on antibiotics currently. She will be started on ceftriaxone, IV fluids. Dr. Ndiaye has admitted the patient. - Vital Signs Vital signs: Temp Pulse Resp BP Pulse Ox 97.5 F 63 18 129/55 H 96 01/23/18 04:00 01/23/18 04:00 01/23/18 04:00 01/23/18 04:00 01/23/18 04:00 - Laboratory Result Diagrams: 01/22/18 16:20 01/22/18 16:20 Laboratory results interpreted by me: 01/22/18 01/22/18 01/22/18 16:20 16:20 20:50 WBC 18.4 H RBC 3.51 L Hgb 9.8 L Hct 30.6 L RDW 14.2 H Absolute Neutrophils 13.8 H Absolute Monocytes 2.0 H BUN 43 H Est GFR ( Amer) 54 L Est GFR (Non-Af Amer) 45 L Glucose 184 H Ur Leukocyte Esterase SMALL H Discharge - Discharge Clinical Impression: Probable sepsis, E. coli urinary tract infection Condition: Fair Disposition: ADMITTED INPATIENT Admitting Provider: Zelda
[2018-01-22] MEDS ORDERED: (PENDING PHARMACY ID) (Risperidone [Risperdal] 0.5 MG) PO SCH (22:00)
[2018-01-22] MEDS ORDERED: (PENDING PHARMACY ID) (Azilsartan Med/Chlorthalidone [Edarbyclor 40-12.5 Mg Tablet] 1 TAB) PO SCH (22:00)
[2018-01-22] MEDS ORDERED: HYDROCODONE BITARTRATE 40 MG PO SCH (22:00)
[2018-01-22] MEDS: RISPERIDONE 0.25 MG TABLET PO SCH (23:10)
[2018-01-22] MEDS: SIMVASTATIN 40 MG TABLET PO SCH (23:10)
[2018-01-23] MEDS ORDERED: IMIPENEM/CILASTATIN SODIUM INJ 500 MG VIAL IV ONE (01:10)
[2018-01-23] MEDS: IMIPENEM/CILASTATIN SODIUM INJ 500 MG VIAL IV SCH ×3 (01:20→17:54)
[2018-01-23] MEDS: NORMAL SALINE 1000 ML 1,000 ML IV PRN ×2 (01:24→16:02)
[2018-01-23 08:10] LABS: ABSOLUTE EOSINOPHILS # (AUTO) 0.3 10^3/uL (0.0-0.6); ABSOLUTE LYMPHOCYTES (AUTO) 2.1 10^3/uL (0.5-4.7); ABSOLUTE MONOCYTES (AUTO) 1.3 10^3/uL (0.1-1.4); BASOPHILS % (AUTO) 0.2 % (0-2); EOSINOPHILS % (AUTO) 2.3 % (0-6); HEMATOCRIT 28.9 % (36.0-47.0); HEMOGLOBIN 9.4 g/dL (12.0-15.5); LYMPHOCYTES % (AUTO) 18.1 % (13-45); MEAN CORPUSCULAR HEMOGLOBIN 28.3 pg (27.0-33.4); MEAN CORPUSCULAR HGB CONC 32.7 g/dL (32.0-36.0); MEAN CORPUSCULAR VOLUME 87 fl (80-97); MONOCYTES % (AUTO) 11.3 % (3-13); PLATELET COUNT 194 10^3/uL (150-450); RED BLOOD COUNT 3.33 10^6/uL (3.72-5.28); SEGMENTED NEUTROPHILS % (AUTO) 68.1 % (42-78); TOTAL CELLS COUNTED % (AUTO) 100 %; WHITE BLOOD COUNT 11.8 10^3/uL (4.0-10.5)
[2018-01-23] MEDS: LANSOPRAZOLE 30 MG TAB.RAP.DR PO SCH (09:46)
[2018-01-23] MEDS: ENOXAPARIN SODIUM INJ 40 MG/0.4 ML DISP.SYRIN SUBCUT SCH (09:46)
[2018-01-23] MEDS: FLUOXETINE HCL 20 MG CAPSULE PO SCH (09:46)
[2018-01-23] MEDS ORDERED: (PENDING PHARMACY ID) (Mometasone Furoate [Nasonex] 2 SPRAY) NASL SCH (10:00)
[2018-01-23] MEDS ORDERED: HYDROCODONE BITARTRATE 40 MG PO SCH (10:00)
[2018-01-23] MEDS ORDERED: FLUTICASONE NASAL SPRAY 50 MCG/SPRY 120 SPRAY/16 GM NASL SCH (10:00)
[2018-01-23] MEDS ORDERED: (PENDING PHARMACY ID) (Azilsartan Med/Chlorthalidone [Edarbyclor 40-12.5 Mg Tablet] 1 TAB) PO SCH (10:00)
[2018-01-23] MEDS: DONEPEZIL HCL 5 MG TABLET PO SCH (10:02)
[2018-01-23] MEDS: LIDOCAINE 5% (700 MG) TRANSDERMAL ADH..PATCH TOP SCH (10:02)
[2018-01-23] MEDS: ATENOLOL 50 MG TABLET PO SCH (10:02)
[2018-01-23] MEDS: CHLORTHALIDONE PO SCH (12:40)
[2018-01-23] MEDS: AZILSARTAN PO SCH (12:40)
[2018-01-23] MEDS: IMIPENEM/CILASTATIN SODIUM 500 MG in NORMAL SALINE 100 ML IV SCH ×2 (13:30→17:47)
[2018-01-23] MEDS ORDERED: HYDROCODONE/ACETAMINOPHEN 7.5-325 MG TABLET PO PRN (13:35)
[2018-01-23] MEDS: ACETAMINOPHEN 325 MG TABLET PO PRN (13:46)
--- NOTE | 2018-01-23 19:22 | PDOC H&P ---
History of Present Illness Admission Date/PCP: 01/22/18 21:30 ELIZABETH WATTS Patient complains of: Altered mental status; UTI History of Present Illness: KATRIN FELTON is a 82 year old female known to my practice who presented to the office earlier today with daughter reporting worsening confusion with patient more out of turn in her responses than baseline and starring at the wall as if in trance. Daughter reported complince with prescribed oral antibiotic for recently diagnosed UTI. Her urine culture was reported growing ESBL E. coli with colonies in excess of 100,000 / mL and sensitive to prescribed Augmentin. Daughter denied any fever or chills, nausea, vomiting or abdominal pain. P.O intake remain poor. Her CBC in the office revealed worsening leukocytosis over 20,000. In view of her failure on oral antibiotic she was advised hospitalization. Due to unavailable inpatient bed, patient was seen in the ED and commence of IV antibiotic therapy. Her morbidities include hypertension, Hyperlipidemia, Senile Dementia with psychosis, Mixed Anxiety with Depression, Osteoarthritis with multiple joints involvement and Chronic Pain Syndrome, CAD s/p stent angioplasty, and seasonal allergic rhinitis. Past Medical History Psychiatric Medical History: Reports: Depression Social History Smoking Status: Unknown if Ever Smoked Family History Parental Family History Reviewed: Yes Children Family History Reviewed: Yes Sibling(s) Family History Reviewed.: Yes Medication/Allergy Home Medications: Azilsartan Med/Chlorthalidone [Edarbyclor 40-12.5 mg Tablet] 1 tab PO DAILY Donepezil HCl [Aricept 5 mg Tablet] 5 mg PO DAILY 04/23/17 Fluoxetine HCl [Prozac] 40 mg PO DAILY 04/23/17 Mometasone Furoate [Nasonex] 2 spray NASL DAILY 04/23/17 Risperidone [Risperdal] 0.5 mg PO QHS 04/23/17 Hydrocodone Bitartrate [Hysingla ER] 40 mg PO DAILY #30 tab.er.24h 04/27/17 Simvastatin [Zocor 40 mg Tablet] 40 mg PO DAILY #30 tablet 04/27/17 Atenolol [Tenormin] 50 mg PO DAILY 01/22/18 Hydrocodone/Acetaminophen [Hydrocodone-Acetamin 7.5-325] 1 tab PO Q12HP PRN Allergies/Adverse Reactions: No Known Allergies Allergy (Unverified 04/23/17 16:02) Review of Systems Constitutional: PRESENT: anorexia, weakness Eyes: ABSENT: visual disturbances Ears: PRESENT: hearing changes Nose, Mouth, and Throat: ABSENT: as per HPI, headache(s), mouth pain, sore throat, vertigo, other Cardiovascular: ABSENT: chest pain, dyspnea on exertion, edema, orthropnea, palpitations Respiratory: ABSENT: cough, hemoptysis Gastrointestinal: ABSENT: abdominal pain, constipation, diarrhea, hematemesis, hematochezia, nausea, vomiting Genitourinary: ABSENT: dysuria, hematuria Musculoskeletal: PRESENT: back pain, deformity - related to multiple joints involvement with arthritis Integumentary: ABSENT: rash, wounds Neurological: PRESENT: confusion, memory loss - related to senile dementia, weakness - generalized. ABSENT: as per HPI, abnormal gait, abnormal movements, abnormal speech, convulsions, dizziness, focal weakness, frequent falls, lack of coordination, numbness, paresthesias, restless legs, syncope, tingling, tremor(s), vertigo, other Psychiatric: PRESENT: anxiety, depression, hallucinations - intermittent episodes Endocrine: ABSENT: cold intolerance, heat intolerance, polydipsia, polyuria Hematologic/Lymphatic: ABSENT: easy bleeding, easy bruising, lymphadenopathy Allergic/Immunologic: PRESENT: seasonal rhinorrhea Physical Exam Vital Signs: Temp Pulse Resp BP Pulse Ox 97.8 F 67 20 139/56 H 99 01/22/18 21:16 01/22/18 21:16 01/22/18 21:16 01/22/18 21:16 01/22/18 21:16 General appearance: PRESENT: no acute distress, other - au=cutely ill looking in wheelchair during evaluation in the office Head exam: PRESENT: atraumatic, normocephalic Eye exam: PRESENT: conjunctiva pink, EOMI, PERRLA. ABSENT: scleral icterus Ear exam: PRESENT: normal external ear exam Mouth exam: PRESENT: moist Neck exam: PRESENT: full ROM. ABSENT: carotid bruit, JVD, lymphadenopathy, thyromegaly Respiratory exam: PRESENT: clear to auscultation regina, decreased breath sounds - at lung bases Cardiovascular exam: PRESENT: RRR. ABSENT: diastolic murmur, rubs, systolic murmur Vascular exam: PRESENT: normal capillary refill. ABSENT: pallor GI/Abdominal exam: PRESENT: normal bowel sounds, soft. ABSENT: distended, guarding, mass, organolmegaly, rebound, tenderness Rectal exam: PRESENT: deferred Extremities exam: ABSENT: pedal edema Musculoskeletal exam: PRESENT: deformity - related to multiple joint involvement with arthritis Neurological exam: PRESENT: altered, awake. ABSENT: alert, oriented to person, oriented to place, oriented to time, oriented to situation, reflexes normal, abnormal gait, ataxia, CN II-XII grossly intact, motor sensory deficit, normal gait, aphasic, other Psychiatric exam: PRESENT: depressed - not engaging spontenously as usual Skin exam: PRESENT: dry, intact, warm. ABSENT: cyanosis, rash Results Laboratory Results: I reviewed her lab results from office and on [email or web address] to form my medical decision on this case. Assessment & Plan - Diagnosis (1) Infection due to ESBL-producing Escherichia coli Is this a current diagnosis for this admission?: Yes Plan: See admitting attending physician orders. (2) E. coli urinary tract infection Is this a current diagnosis for this admission?: Yes Plan: See admitting attending physician orders. (3) Failure of outpatient treatment Is this a current diagnosis for this admission?: Yes Plan: See admitting attending physician orders. (4) HTN (hypertension) Qualifiers: Hypertension type: essential hypertension Qualified Code(s): I10 - Essential (primary) hypertension Is this a current diagnosis for this admission?: Yes Plan: See admitting attending physician orders. (5) HLD (hyperlipidemia) Qualifiers: Hyperlipidemia type: pure hypercholesterolemia Qualified Code(s): E78.00 - Pure hypercholesterolemia, unspecified; E78.0 - Pure hypercholesterolemia Is this a current diagnosis for this admission?: Yes Plan: See admitting attending physician orders. (6) CAD S/P percutaneous coronary angioplasty Is this a current diagnosis for this admission?: Yes Plan: See admitting attending physician orders. (7) Osteoarthritis involving multiple joints on both sides of body Is this a current diagnosis for this admission?: Yes Plan: See admitting attending physician orders. (8) Chronic pain syndrome Is this a current diagnosis for this admission?: Yes Plan: See admitting attending physician orders. (9) Chronic use of opiate for therapeutic purpose Is this a current diagnosis for this admission?: Yes Plan: See admitting attending physician orders. (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 Is this a current diagnosis for this admission?: Yes Plan: See admitting attending physician orders. - Time Time Spent: 50 to 70 Minutes Medications reviewed and adjusted accordingly: Yes Anticipated discharge: Home with Homehealth Within: Other - Inpatient Certification Based on my medical assessment, after consideration of the patient's comorbidities, presenting symptoms, or acuity I expect that the services needed warrant INPATIENT care.: Yes I certify that my determination is in accordance with my understanding of Medicare's requirements for reasonable and necessary INPATIENT services [42 CFR 412.3e].: Yes Medical Necessity: Need Close Monitoring Due to Risk of Patient Decompensation, Need For IV Fluids, Need For Continuous Telemetry Monitoring, Need for IV Antibiotics, Risk of Complication if Not Cared For in Hospital Post Hospital Care: D/C Him Clerk Documentation - Plan Summary Plan Summary: See admitting attending physician orders.
--- NOTE | 2018-01-23 19:42 | PDOC PROGRESS REPORT ---
Subjective Progress Note for:: 01/23/18 Subjective:: Patient reported improvement in her condition but very concern about her pain management. Hysinglar is non-formulary at this hospital. No nausea, vomiting or abdominal pain. Appetite and p.o intake improving. Reason For Visit: AMS,UTI,ESBL Physical Exam Vital Signs: Temp Pulse Resp BP Pulse Ox 98.8 F 64 18 137/59 H 96 01/23/18 17:23 01/23/18 17:23 01/23/18 17:23 01/23/18 17:23 01/23/18 17:23 Intake & Output 01/22/18 01/23/18 01/24/18 06:59 06:59 06:59 Intake Total 1000 2504 Balance 1000 2504 Weight 79.5 kg General appearance: PRESENT: no acute distress, obese Head exam: PRESENT: atraumatic, normocephalic Eye exam: PRESENT: conjunctiva pink, EOMI, PERRLA. ABSENT: scleral icterus Ear exam: PRESENT: normal external ear exam Mouth exam: PRESENT: moist Respiratory exam: PRESENT: clear to auscultation regina, decreased breath sounds - at lung bases Vascular exam: PRESENT: normal capillary refill. ABSENT: pallor GI/Abdominal exam: PRESENT: normal bowel sounds, soft. ABSENT: distended, guarding, mass, organolmegaly, rebound, tenderness Extremities exam: ABSENT: pedal edema Musculoskeletal exam: PRESENT: deformity - related to multiple joints involvement with arthritis., tenderness - multiple joints Neurological exam: PRESENT: alert, awake Psychiatric exam: PRESENT: appropriate affect, normal mood. ABSENT: homicidal ideation, suicidal ideation Skin exam: PRESENT: dry, intact, warm. ABSENT: cyanosis, rash Results Laboratory Results: 01/23/18 07:43 01/23/18 07:43 WBC 11.8 H RBC 3.33 L Hgb 9.4 L Hct 28.9 L MCV 87 MCH 28.3 MCHC 32.7 RDW 14.0 Plt Count 194 Seg Neutrophils % 68.1 Lymphocytes % 18.1 Monocytes % 11.3 Eosinophils % 2.3 Basophils % 0.2 Absolute Neutrophils 8.0 Absolute Lymphocytes 2.1 Absolute Monocytes 1.3 Absolute Eosinophils 0.3 Absolute Basophils 0.0 Assessment & Plan - Diagnosis (1) Infection due to ESBL-producing Escherichia coli Is this a current diagnosis for this admission?: Yes Plan: Continue IV Primaxin therapy. (2) E. coli urinary tract infection Is this a current diagnosis for this admission?: Yes Plan: Continue IV Primaxin therapy. (3) Failure of outpatient treatment Is this a current diagnosis for this admission?: Yes Plan: Continue IV Primaxin therapy. (4) HTN (hypertension) Qualifiers: Hypertension type: essential hypertension Qualified Code(s): I10 - Essential (primary) hypertension Is this a current diagnosis for this admission?: Yes Plan: See attending physician orders. (5) HLD (hyperlipidemia) Qualifiers: Hyperlipidemia type: pure hypercholesterolemia Qualified Code(s): E78.00 - Pure hypercholesterolemia, unspecified; E78.0 - Pure hypercholesterolemia Is this a current diagnosis for this admission?: Yes Plan: See attending physician orders. (6) CAD S/P percutaneous coronary angioplasty Is this a current diagnosis for this admission?: Yes Plan: See attending physician orders. (7) Osteoarthritis involving multiple joints on both sides of body Is this a current diagnosis for this admission?: Yes Plan: See attending physician orders. (8) Chronic pain syndrome Is this a current diagnosis for this admission?: Yes Plan: See attending physician orders. (9) Chronic use of opiate for therapeutic purpose Is this a current diagnosis for this admission?: Yes Plan: See attending physician orders. (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 Is this a current diagnosis for this admission?: Yes Plan: See attending physician orders. - Time Time Spent with patient: 25-34 minutes Medications reviewed and adjusted accordingly: Yes Anticipated discharge: Acute Rehab Within: Other - Inpatient Certification Based on my medical assessment, after consideration of the patient's comorbidities, presenting symptoms, or acuity I expect that the services needed warrant INPATIENT care.: Yes I certify that my determination is in accordance with my understanding of Medicare's requirements for reasonable and necessary INPATIENT services [42 CFR 412.3e].: Yes Medical Necessity: Need Close Monitoring Due to Risk of Patient Decompensation, Need For IV Fluids, Need For Continuous Telemetry Monitoring, Need for IV Antibiotics, Risk of Complication if Not Cared For in Hospital Post Hospital Care: D/C or Transfer Summary - Plan Summary Plan Summary: See attending physician orders. Daughter and patient agreed to SNF placement for short term rehab upon discharge and DNR status while on admission.
[2018-01-23] MEDS: HYDROCODONE/ACETAMINOPHEN 5-325 MG TABLET PO PRN (19:58)
[2018-01-23] MEDS: RISPERIDONE 0.25 MG TABLET PO SCH (21:48)
[2018-01-23] MEDS: SIMVASTATIN 40 MG TABLET PO SCH (21:48)
[2018-01-24] MEDS: HYDROCODONE/ACETAMINOPHEN 5-325 MG TABLET PO PRN ×4 (00:03→18:20)
[2018-01-24] MEDS: IMIPENEM/CILASTATIN SODIUM 500 MG in NORMAL SALINE 100 ML IV SCH ×4 (00:04→18:20)
[2018-01-24 05:53] LABS: ABSOLUTE EOSINOPHILS # (AUTO) 0.3 10^3/uL (0.0-0.6); ABSOLUTE LYMPHOCYTES (AUTO) 2.4 10^3/uL (0.5-4.7); ABSOLUTE MONOCYTES (AUTO) 1.2 10^3/uL (0.1-1.4); ABSOLUTE NEUT (AUTO) 6.6 10^3/uL (1.7-8.2); BASOPHILS % (AUTO) 0.4 % (0-2); EOSINOPHILS % (AUTO) 3.1 % (0-6); HEMATOCRIT 29.1 % (36.0-47.0); HEMOGLOBIN 9.4 g/dL (12.0-15.5); LYMPHOCYTES % (AUTO) 22.7 % (13-45); MEAN CORPUSCULAR HEMOGLOBIN 28.5 pg (27.0-33.4); MEAN CORPUSCULAR HGB CONC 32.4 g/dL (32.0-36.0); MEAN CORPUSCULAR VOLUME 88 fl (80-97); PLATELET COUNT 200 10^3/uL (150-450); RED BLOOD COUNT 3.31 10^6/uL (3.72-5.28); RED CELL DISTRIBUTION WIDTH 13.9 % (11.5-14.0); SEGMENTED NEUTROPHILS % (AUTO) 62.8 % (42-78); TOTAL CELLS COUNTED % (AUTO) 100 %; WHITE BLOOD COUNT 10.5 10^3/uL (4.0-10.5)
[2018-01-24] MEDS: NORMAL SALINE 1000 ML 1,000 ML IV PRN ×2 (06:17→20:57)
[2018-01-24 06:31] LABS: ANION GAP 9 (5-19); BLOOD UREA NITROGEN 27 mg/dL (7-20); CALCIUM 8.7 mg/dL (8.4-10.2); CARBON DIOXIDE 24 mmol/L (22-30); CHLORIDE 110 mmol/L (98-107); GLUCOSE 85 mg/dL (75-110); POTASSIUM 4.1 mmol/L (3.6-5.0); SODIUM 143.4 mmol/L (137-145)
[2018-01-24] MEDS: DONEPEZIL HCL 5 MG TABLET PO SCH (09:32)
[2018-01-24] MEDS: ATENOLOL 50 MG TABLET PO SCH (09:33)
[2018-01-24] MEDS: AZILSARTAN PO SCH (09:34)
[2018-01-24] MEDS: LIDOCAINE 5% (700 MG) TRANSDERMAL ADH..PATCH TOP SCH (09:34)
[2018-01-24] MEDS: CHLORTHALIDONE PO SCH (09:34)
[2018-01-24] MEDS: LANSOPRAZOLE 30 MG TAB.RAP.DR PO SCH (09:34)
[2018-01-24] MEDS: ENOXAPARIN SODIUM INJ 40 MG/0.4 ML DISP.SYRIN SUBCUT SCH (09:34)
[2018-01-24] MEDS: FLUOXETINE HCL 20 MG CAPSULE PO SCH (09:34)
[2018-01-24] MEDS: ACETAMINOPHEN 325 MG TABLET PO PRN (11:45)
--- NOTE | 2018-01-24 17:20 | PDOC PROGRESS REPORT ---
Subjective Progress Note for:: 01/24/18 Subjective:: Patient reported improvement in her dysuria. No nausea, vomiting or abdominal pain. Appetite and p.o intake improving. Reason For Visit: AMS,UTI,ESBL Physical Exam Vital Signs: Temp Pulse Resp BP Pulse Ox 98.7 F 66 16 155/55 H 99 01/24/18 14:54 01/24/18 14:54 01/24/18 14:54 01/24/18 14:54 01/24/18 14:54 Intake & Output 01/23/18 01/24/18 01/25/18 06:59 06:59 06:59 Intake Total 1000 3704 603 Balance 1000 3704 603 Weight 79.5 kg 83.9 kg Physical Exam: General appearance: PRESENT: no acute distress, obese Head exam: PRESENT: atraumatic, normocephalic Eye exam: PRESENT: conjunctiva pink, EOMI, PERRLA. ABSENT: scleral icterus Ear exam: PRESENT: normal external ear exam Mouth exam: PRESENT: moist Respiratory exam: PRESENT: clear to auscultation regina, decreased breath sounds - at lung bases Vascular exam: PRESENT: normal capillary refill. ABSENT: pallor GI/Abdominal exam: PRESENT: normal bowel sounds, soft. ABSENT: distended, guarding, mass, organomegaly, rebound, tenderness Extremities exam: ABSENT: pedal edema Musculoskeletal exam: PRESENT: deformity - related to multiple joints involvement with arthritis., tenderness - multiple joints Neurological exam: PRESENT: alert, awake Psychiatric exam: PRESENT: appropriate affect, normal mood. ABSENT: homicidal ideation, suicidal ideation Skin exam: PRESENT: dry, intact, warm. ABSENT: cyanosis, rash Results Laboratory Results: 01/24/18 04:40 01/24/18 04:40 01/24/18 01/24/18 04:40 04:40 WBC 10.5 RBC 3.31 L Hgb 9.4 L Hct 29.1 L MCV 88 MCH 28.5 MCHC 32.4 RDW 13.9 Plt Count 200 Seg Neutrophils % 62.8 Lymphocytes % 22.7 Monocytes % 11.0 Eosinophils % 3.1 Basophils % 0.4 Absolute Neutrophils 6.6 Absolute Lymphocytes 2.4 Absolute Monocytes 1.2 Absolute Eosinophils 0.3 Absolute Basophils 0.0 Sodium 143.4 Potassium 4.1 Chloride 110 H Carbon Dioxide 24 Anion Gap 9 BUN 27 H Creatinine 0.85 Est GFR ( Amer) > 60 Est GFR (Non-Af Amer) > 60 Glucose 85 Calcium 8.7 Assessment & Plan - Diagnosis (1) Infection due to ESBL-producing Escherichia coli Is this a current diagnosis for this admission?: Yes (2) E. coli urinary tract infection Is this a current diagnosis for this admission?: Yes (3) Failure of outpatient treatment Is this a current diagnosis for this admission?: Yes (4) HTN (hypertension) Qualifiers: Hypertension type: essential hypertension Qualified Code(s): I10 - Essential (primary) hypertension Is this a current diagnosis for this admission?: Yes (5) HLD (hyperlipidemia) Qualifiers: Hyperlipidemia type: pure hypercholesterolemia Qualified Code(s): E78.00 - Pure hypercholesterolemia, unspecified; E78.0 - Pure hypercholesterolemia Is this a current diagnosis for this admission?: Yes (6) CAD S/P percutaneous coronary angioplasty Is this a current diagnosis for this admission?: Yes (7) Osteoarthritis involving multiple joints on both sides of body Is this a current diagnosis for this admission?: Yes (8) Chronic pain syndrome Is this a current diagnosis for this admission?: Yes (9) Chronic use of opiate for therapeutic purpose Is this a current diagnosis for this admission?: Yes (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 Is this a current diagnosis for this admission?: Yes - Time Time Spent with patient: 25-34 minutes Medications reviewed and adjusted accordingly: Yes Anticipated discharge: Acute Rehab Within: Other - Inpatient Certification Based on my medical assessment, after consideration of the patient's comorbidities, presenting symptoms, or acuity I expect that the services needed warrant INPATIENT care.: Yes I certify that my determination is in accordance with my understanding of Medicare's requirements for reasonable and necessary INPATIENT services [42 CFR 412.3e].: Yes Medical Necessity: Need Close Monitoring Due to Risk of Patient Decompensation, Need For IV Fluids, Need For Continuous Telemetry Monitoring, Need for IV Antibiotics, Risk of Complication if Not Cared For in Hospital Post Hospital Care: D/C or Transfer Summary - Plan Summary Plan Summary: Continue current medication management. mechanical planner will look into short term rehabilitation at local SNF.
[2018-01-24] MEDS: RISPERIDONE 0.25 MG TABLET PO SCH (21:00)
[2018-01-24] MEDS: SIMVASTATIN 40 MG TABLET PO SCH (21:00)
[2018-01-25] MEDS: IMIPENEM/CILASTATIN SODIUM 500 MG in NORMAL SALINE 100 ML IV SCH ×4 (02:55→21:05)
[2018-01-25] MEDS: HYDROCODONE/ACETAMINOPHEN 5-325 MG TABLET PO PRN ×4 (08:35→21:05)
[2018-01-25] MEDS: DONEPEZIL HCL 5 MG TABLET PO SCH (09:09)
[2018-01-25] MEDS: FLUOXETINE HCL 20 MG CAPSULE PO SCH (09:10)
[2018-01-25] MEDS: ATENOLOL 50 MG TABLET PO SCH (09:10)
[2018-01-25] MEDS: CHLORTHALIDONE PO SCH (09:11)
[2018-01-25] MEDS: AZILSARTAN PO SCH (09:11)
[2018-01-25] MEDS: LANSOPRAZOLE 30 MG TAB.RAP.DR PO SCH (09:12)
[2018-01-25] MEDS: ENOXAPARIN SODIUM INJ 40 MG/0.4 ML DISP.SYRIN SUBCUT SCH (09:13)
[2018-01-25] MEDS: LIDOCAINE 5% (700 MG) TRANSDERMAL ADH..PATCH TOP SCH (09:13)
[2018-01-25] MEDS ORDERED: OXYCODONE HCL IR 5 MG TABLET PO ONE (14:30)
[2018-01-25] MEDS ORDERED: ACETAMINOPHEN 325 MG TABLET PO PRN (15:12)
--- NOTE | 2018-01-25 17:40 | PDOC PROGRESS REPORT ---
Subjective Progress Note for:: 01/25/18 Subjective:: Patient reported increase back pain necessitating additional dose of Oxy IR today. 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 No chest pain, difficulty with breathing, nausea, vomiting or abdominal pain. Appetite and p.o intake improving. Remain on IV Primaxin coverage. Blood culture id no growth to date. Reason For Visit: AMS,UTI,ESBL Physical Exam Vital Signs: Temp Pulse Resp BP Pulse Ox 99.3 F 75 15 162/82 H 98 01/25/18 08:00 01/25/18 08:00 01/25/18 08:00 01/25/18 12:55 01/25/18 08:00 Intake & Output 01/24/18 01/25/18 01/26/18 06:59 06:59 06:59 Intake Total 3704 2684 1200 Balance 3704 2684 1200 Weight 83.9 kg 84.3 kg Physical Exam: General appearance: PRESENT: no acute distress, obese Head exam: PRESENT: atraumatic, normocephalic Eye exam: PRESENT: conjunctiva pink, EOMI, PERRLA. ABSENT: scleral icterus Ear exam: PRESENT: normal external ear exam Mouth exam: PRESENT: moist Respiratory exam: PRESENT: clear to auscultation regina, decreased breath sounds - at lung bases Vascular exam: ABSENT: pallor GI/Abdominal exam: PRESENT: normal bowel sounds, soft. ABSENT: distended, guarding, mass, organomegaly, rebound, tenderness Extremities exam: ABSENT: pedal edema Musculoskeletal exam: PRESENT: deformity - related to multiple joints involvement with arthritis., tenderness - multiple joints Neurological exam: PRESENT: alert, awake Psychiatric exam: PRESENT: appropriate affect, normal mood. ABSENT: homicidal ideation, suicidal ideation Skin exam: PRESENT: dry, intact, warm. ABSENT: cyanosis, rash Results Laboratory Results: 01/24/18 04:40 01/24/18 04:40 Assessment & Plan - Diagnosis (1) Infection due to ESBL-producing Escherichia coli Is this a current diagnosis for this admission?: Yes (2) E. coli urinary tract infection Is this a current diagnosis for this admission?: Yes (3) Failure of outpatient treatment Is this a current diagnosis for this admission?: Yes (4) HTN (hypertension) Qualifiers: Hypertension type: essential hypertension Qualified Code(s): I10 - Essential (primary) hypertension Is this a current diagnosis for this admission?: Yes (5) HLD (hyperlipidemia) Qualifiers: Hyperlipidemia type: pure hypercholesterolemia Qualified Code(s): E78.00 - Pure hypercholesterolemia, unspecified; E78.0 - Pure hypercholesterolemia Is this a current diagnosis for this admission?: Yes (6) CAD S/P percutaneous coronary angioplasty Is this a current diagnosis for this admission?: Yes (7) Osteoarthritis involving multiple joints on both sides of body Is this a current diagnosis for this admission?: Yes (8) Chronic pain syndrome Is this a current diagnosis for this admission?: Yes (9) Chronic use of opiate for therapeutic purpose Is this a current diagnosis for this admission?: Yes (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 Is this a current diagnosis for this admission?: Yes - Time Time Spent with patient: 25-34 minutes Medications reviewed and adjusted accordingly: Yes Anticipated discharge: SNF, Acute Rehab Within: Other - Inpatient Certification Based on my medical assessment, after consideration of the patient's comorbidities, presenting symptoms, or acuity I expect that the services needed warrant INPATIENT care.: Yes I certify that my determination is in accordance with my understanding of Medicare's requirements for reasonable and necessary INPATIENT services [42 CFR 412.3e].: Yes Medical Necessity: Need Close Monitoring Due to Risk of Patient Decompensation, Need For IV Fluids, Need for IV Antibiotics, Risk of Complication if Not Cared For in Hospital Post Hospital Care: D/C or Transfer Summary - Plan Summary Plan Summary: Continue current medication management. Follow up on blood culture findings and SNF placement for short term rehabilitation.
[2018-01-25] MEDS: NORMAL SALINE 1000 ML 1,000 ML IV PRN (17:49)
[2018-01-25] MEDS: RISPERIDONE 0.25 MG TABLET PO SCH (21:05)
[2018-01-25] MEDS: SIMVASTATIN 40 MG TABLET PO SCH (21:05)
[2018-01-25] MEDS: PHARMACY COMMUNICATION ORDER MC SCH (21:09)
[2018-01-26] MEDS: IMIPENEM/CILASTATIN SODIUM 500 MG in NORMAL SALINE 100 ML IV SCH ×5 (01:03→21:15)
[2018-01-26] MEDS: LANSOPRAZOLE 30 MG TAB.RAP.DR PO SCH (05:43)
[2018-01-26] MEDS: HYDROCODONE/ACETAMINOPHEN 5-325 MG TABLET PO PRN ×3 (07:37→18:41)
[2018-01-26] MEDS: NORMAL SALINE 1000 ML 1,000 ML IV PRN (10:03)
[2018-01-26] MEDS: AZILSARTAN PO SCH (10:07)
[2018-01-26] MEDS: CHLORTHALIDONE PO SCH (10:07)
[2018-01-26] MEDS: DONEPEZIL HCL 5 MG TABLET PO SCH (10:08)
[2018-01-26] MEDS: ATENOLOL 50 MG TABLET PO SCH (10:08)
[2018-01-26] MEDS: LIDOCAINE 5% (700 MG) TRANSDERMAL ADH..PATCH TOP SCH (10:08)
[2018-01-26] MEDS: FLUOXETINE HCL 20 MG CAPSULE PO SCH (10:09)
[2018-01-26] MEDS: ENOXAPARIN SODIUM INJ 40 MG/0.4 ML DISP.SYRIN SUBCUT SCH (10:11)
[2018-01-26] MEDS ORDERED: ENALAPRILAT DIHYDRATE INJ/PF 2.5 MG/2 ML SDV IV ONE (14:30)
[2018-01-26] MEDS ORDERED: OXYCODONE HCL IR 5 MG TABLET PO ONE (16:00)
--- NOTE | 2018-01-26 20:07 | PDOC PROGRESS REPORT ---
Subjective Progress Note for:: 01/26/18 Subjective:: There is more concern about her pain and elevated blood pressure so far today. She denied any chest pain or difficulty with breathing but expressed persistent lower back pain. She did not particip[ate in physical therapy session today. No nausea or vomiting. P.O intake slightly better today. Reason For Visit: AMS,UTI,ESBL Physical Exam Vital Signs: Temp Pulse Resp BP Pulse Ox 98.5 F 67 18 150/54 H 96 01/26/18 19:16 01/26/18 19:16 01/26/18 19:16 01/26/18 19:16 01/26/18 19:16 Intake & Output 01/25/18 01/26/18 01/27/18 06:59 06:59 06:59 Intake Total 2684 1500 1200 Balance 2684 1500 1200 Weight 84.3 kg 83.7 kg Physical Exam: General appearance: PRESENT: no acute distress, obese Head exam: PRESENT: atraumatic, normocephalic Eye exam: PRESENT: conjunctiva pink, EOMI, PERRLA. ABSENT: scleral icterus Ear exam: PRESENT: normal external ear exam Mouth exam: PRESENT: moist Respiratory exam: PRESENT: clear to auscultation regina, decreased breath sounds - at lung bases Vascular exam: ABSENT: pallor GI/Abdominal exam: PRESENT: normal bowel sounds, soft. ABSENT: distended, guarding, mass, organomegaly, rebound, tenderness Extremities exam: ABSENT: pedal edema Musculoskeletal exam: PRESENT: deformity - related to multiple joints involvement with arthritis., tenderness - multiple joints Neurological exam: PRESENT: alert, awake Psychiatric exam: PRESENT: appropriate affect, normal mood. ABSENT: homicidal ideation, suicidal ideation Skin exam: PRESENT: dry, intact, warm. ABSENT: cyanosis, rash Results Laboratory Results: 01/24/18 04:40 01/24/18 04:40 Assessment & Plan - Diagnosis (1) Infection due to ESBL-producing Escherichia coli Is this a current diagnosis for this admission?: Yes (2) E. coli urinary tract infection Is this a current diagnosis for this admission?: Yes (3) Failure of outpatient treatment Is this a current diagnosis for this admission?: Yes (4) HTN (hypertension) Qualifiers: Hypertension type: essential hypertension Qualified Code(s): I10 - Essential (primary) hypertension Is this a current diagnosis for this admission?: Yes (5) HLD (hyperlipidemia) Qualifiers: Hyperlipidemia type: pure hypercholesterolemia Qualified Code(s): E78.00 - Pure hypercholesterolemia, unspecified; E78.0 - Pure hypercholesterolemia Is this a current diagnosis for this admission?: Yes (6) CAD S/P percutaneous coronary angioplasty Is this a current diagnosis for this admission?: Yes (7) Osteoarthritis involving multiple joints on both sides of body Is this a current diagnosis for this admission?: Yes (8) Chronic pain syndrome Is this a current diagnosis for this admission?: Yes (9) Chronic use of opiate for therapeutic purpose Is this a current diagnosis for this admission?: Yes (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 Is this a current diagnosis for this admission?: Yes - Time Time Spent with patient: 25-34 minutes Medications reviewed and adjusted accordingly: Yes Anticipated discharge: SNF, Acute Rehab Within: Other - Inpatient Certification Based on my medical assessment, after consideration of the patient's comorbidities, presenting symptoms, or acuity I expect that the services needed warrant INPATIENT care.: Yes I certify that my determination is in accordance with my understanding of Medicare's requirements for reasonable and necessary INPATIENT services [42 CFR 412.3e].: Yes Medical Necessity: Need Close Monitoring Due to Risk of Patient Decompensation, Need For IV Fluids, Need For Continuous Telemetry Monitoring, Need for IV Antibiotics, Risk of Complication if Not Cared For in Hospital Post Hospital Care: D/C or Transfer Summary - Plan Summary Plan Summary: See attending physician orders.
[2018-01-26] MEDS: FENTANYL 12 MCG/HR PATCH.TD72 TD SCH ×2 (21:17→22:00)
[2018-01-26] MEDS: RISPERIDONE 0.25 MG TABLET PO SCH (21:20)
[2018-01-26] MEDS: SIMVASTATIN 40 MG TABLET PO SCH (21:21)
[2018-01-26] MEDS: PHARMACY COMMUNICATION ORDER MC SCH (23:22)
[2018-01-27] MEDS: IMIPENEM/CILASTATIN SODIUM 500 MG in NORMAL SALINE 100 ML IV SCH ×4 (03:15→21:12)
[2018-01-27] MEDS: LANSOPRAZOLE 30 MG TAB.RAP.DR PO SCH (05:37)
[2018-01-27] MEDS: HYDROCODONE/ACETAMINOPHEN 5-325 MG TABLET PO PRN ×4 (08:00→21:13)
[2018-01-27] MEDS ORDERED: NORMAL SALINE 1000 ML 1,000 ML IV PRN (08:29)
--- NOTE | 2018-01-27 08:36 | PDOC PROGRESS REPORT ---
Subjective Progress Note for:: 01/27/18 Subjective:: Patient denied any chest pain or difficulty with breathing. No nausea or vomiting. Her lower back pain is fairly controlled. Currently on Fentanyl patch with breakthrough [place] for pain management. Reason For Visit: AMS,UTI,ESBL Physical Exam Vital Signs: Temp Pulse Resp BP Pulse Ox 98.2 F 73 18 168/50 H 95 01/27/18 03:44 01/27/18 03:44 01/27/18 03:44 01/27/18 03:44 01/27/18 03:44 Intake & Output 01/26/18 01/27/18 01/28/18 06:59 06:59 06:59 Intake Total 1500 3045 Balance 1500 3045 Weight 83.7 kg 84.2 kg General appearance: PRESENT: no acute distress, obese Head exam: PRESENT: atraumatic, normocephalic Eye exam: PRESENT: conjunctiva pink, EOMI, PERRLA. ABSENT: scleral icterus Ear exam: PRESENT: normal external ear exam Mouth exam: PRESENT: moist Respiratory exam: PRESENT: clear to auscultation regina Cardiovascular exam: PRESENT: RRR. ABSENT: diastolic murmur, rubs, systolic murmur Vascular exam: ABSENT: pallor GI/Abdominal exam: PRESENT: normal bowel sounds, soft. ABSENT: distended, guarding, mass, organolmegaly, rebound, tenderness Extremities exam: ABSENT: pedal edema Musculoskeletal exam: PRESENT: deformity - related to multiple joints involvement with arthritis. Neurological exam: PRESENT: alert, awake, oriented to person, oriented to place , oriented to time, oriented to situation, CN II-XII grossly intact. ABSENT: motor sensory deficit Psychiatric exam: PRESENT: appropriate affect, normal mood. ABSENT: homicidal ideation, suicidal ideation Skin exam: PRESENT: dry, intact, warm. ABSENT: cyanosis, rash Results Laboratory Results: 01/24/18 04:40 01/24/18 04:40 Assessment & Plan - Diagnosis (1) Infection due to ESBL-producing Escherichia coli Is this a current diagnosis for this admission?: Yes (2) E. coli urinary tract infection Is this a current diagnosis for this admission?: Yes (3) Failure of outpatient treatment Is this a current diagnosis for this admission?: Yes (4) HTN (hypertension) Qualifiers: Hypertension type: essential hypertension Qualified Code(s): I10 - Essential (primary) hypertension Is this a current diagnosis for this admission?: Yes (5) HLD (hyperlipidemia) Qualifiers: Hyperlipidemia type: pure hypercholesterolemia Qualified Code(s): E78.00 - Pure hypercholesterolemia, unspecified; E78.0 - Pure hypercholesterolemia Is this a current diagnosis for this admission?: Yes (6) CAD S/P percutaneous coronary angioplasty Is this a current diagnosis for this admission?: Yes (7) Osteoarthritis involving multiple joints on both sides of body Is this a current diagnosis for this admission?: Yes (8) Chronic pain syndrome Is this a current diagnosis for this admission?: Yes (9) Chronic use of opiate for therapeutic purpose Is this a current diagnosis for this admission?: Yes (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 Is this a current diagnosis for this admission?: Yes - Time Time Spent with patient: 25-34 minutes Medications reviewed and adjusted accordingly: Yes Anticipated discharge: SNF Within: Other - Inpatient Certification Based on my medical assessment, after consideration of the patient's comorbidities, presenting symptoms, or acuity I expect that the services needed warrant INPATIENT care.: Yes I certify that my determination is in accordance with my understanding of Medicare's requirements for reasonable and necessary INPATIENT services [42 CFR 412.3e].: Yes Medical Necessity: Need Close Monitoring Due to Risk of Patient Decompensation, Need For IV Fluids, Need For Continuous Telemetry Monitoring, Need for IV Antibiotics, Risk of Complication if Not Cared For in Hospital Post Hospital Care: D/C or Transfer Summary - Plan Summary Plan Summary: Decrease IV fluid rate to 30 mL/hr. Encouraged oral fluid intake. Maintain on all other current medication management. Follow up on blood culture findings.
[2018-01-27] MEDS: CHLORTHALIDONE PO SCH (09:57)
[2018-01-27] MEDS: AZILSARTAN PO SCH (09:57)
[2018-01-27] MEDS: ATENOLOL 50 MG TABLET PO SCH (09:57)
[2018-01-27] MEDS: DONEPEZIL HCL 5 MG TABLET PO SCH (09:58)
[2018-01-27] MEDS: LIDOCAINE 5% (700 MG) TRANSDERMAL ADH..PATCH TOP SCH (09:58)
[2018-01-27] MEDS: FLUOXETINE HCL 20 MG CAPSULE PO SCH (09:58)
[2018-01-27] MEDS: ENOXAPARIN SODIUM INJ 40 MG/0.4 ML DISP.SYRIN SUBCUT SCH (09:59)
[2018-01-27] MEDS: RISPERIDONE 0.25 MG TABLET PO SCH (21:13)
[2018-01-27] MEDS: SIMVASTATIN 40 MG TABLET PO SCH (21:14)
[2018-01-27] MEDS: PHARMACY COMMUNICATION ORDER MC SCH (21:18)
[2018-01-28] MEDS: IMIPENEM/CILASTATIN SODIUM 500 MG in NORMAL SALINE 100 ML IV SCH ×3 (03:56→14:36)
[2018-01-28] MEDS: LANSOPRAZOLE 30 MG TAB.RAP.DR PO SCH (06:49)
[2018-01-28] MEDS: HYDROCODONE/ACETAMINOPHEN 5-325 MG TABLET PO PRN ×4 (08:03→21:10)
[2018-01-28] MEDS: ATENOLOL 50 MG TABLET PO SCH (10:49)
[2018-01-28] MEDS: DONEPEZIL HCL 5 MG TABLET PO SCH (10:49)
[2018-01-28] MEDS: AZILSARTAN PO SCH (10:50)
[2018-01-28] MEDS: LIDOCAINE 5% (700 MG) TRANSDERMAL ADH..PATCH TOP SCH (10:50)
[2018-01-28] MEDS: FLUOXETINE HCL 20 MG CAPSULE PO SCH (10:50)
[2018-01-28] MEDS: CHLORTHALIDONE PO SCH (10:50)
[2018-01-28] MEDS: ENOXAPARIN SODIUM INJ 40 MG/0.4 ML DISP.SYRIN SUBCUT SCH (10:52)
--- NOTE | 2018-01-28 18:24 | PDOC PROGRESS REPORT ---
Subjective Progress Note for:: 01/28/18 Subjective:: Patient denied any chest pain or difficulty with breathing. No abdominal pain, nausea or vomiting. PO intake improving. Her lower back pain is fairly controlled. Reason For Visit: AMS,UTI,ESBL Physical Exam Vital Signs: Temp Pulse Resp BP Pulse Ox 98.8 F 67 20 183/67 H 98 01/28/18 16:00 01/28/18 16:00 01/28/18 16:00 01/28/18 16:00 01/28/18 16:00 Intake & Output 01/27/18 01/28/18 01/29/18 06:59 06:59 06:59 Intake Total 3045 1240 200 Output Total 3 Balance 3045 1237 200 Weight 84.2 kg 84.5 kg Physical Exam: General appearance: PRESENT: no acute distress, obese Head exam: PRESENT: atraumatic, normocephalic Eye exam: PRESENT: conjunctiva pink, EOMI, PERRLA. ABSENT: scleral icterus Ear exam: PRESENT: normal external ear exam Mouth exam: PRESENT: moist Respiratory exam: PRESENT: clear to auscultation regina Cardiovascular exam: PRESENT: RRR. ABSENT: diastolic murmur, rubs, systolic murmur Vascular exam: ABSENT: pallor GI/Abdominal exam: PRESENT: normal bowel sounds, soft. ABSENT: distended, guarding, mass, organomegaly, rebound, tenderness Extremities exam: ABSENT: pedal edema Musculoskeletal exam: PRESENT: deformity - related to multiple joints involvement with arthritis. Neurological exam: PRESENT: alert, awake, oriented to person, oriented to place , oriented to time, oriented to situation, CN II-XII grossly intact. ABSENT: motor sensory deficit Psychiatric exam: PRESENT: appropriate affect, normal mood. ABSENT: homicidal ideation, suicidal ideation Skin exam: PRESENT: dry, intact, warm. ABSENT: cyanosis, rash Results Laboratory Results: 01/24/18 04:40 01/24/18 04:40 Assessment & Plan - Diagnosis (1) Infection due to ESBL-producing Escherichia coli Is this a current diagnosis for this admission?: Yes (2) E. coli urinary tract infection Is this a current diagnosis for this admission?: Yes (3) Failure of outpatient treatment Is this a current diagnosis for this admission?: Yes (4) HTN (hypertension) Qualifiers: Hypertension type: essential hypertension Qualified Code(s): I10 - Essential (primary) hypertension Is this a current diagnosis for this admission?: Yes (5) HLD (hyperlipidemia) Qualifiers: Hyperlipidemia type: pure hypercholesterolemia Qualified Code(s): E78.00 - Pure hypercholesterolemia, unspecified; E78.0 - Pure hypercholesterolemia Is this a current diagnosis for this admission?: Yes (6) CAD S/P percutaneous coronary angioplasty Is this a current diagnosis for this admission?: Yes (7) Osteoarthritis involving multiple joints on both sides of body Is this a current diagnosis for this admission?: Yes (8) Chronic pain syndrome Is this a current diagnosis for this admission?: Yes (9) Chronic use of opiate for therapeutic purpose Is this a current diagnosis for this admission?: Yes (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 Is this a current diagnosis for this admission?: Yes - Time Time Spent with patient: 25-34 minutes Medications reviewed and adjusted accordingly: Yes Anticipated discharge: SNF, Acute Rehab Within: within 24 hours - Inpatient Certification Based on my medical assessment, after consideration of the patient's comorbidities, presenting symptoms, or acuity I expect that the services needed warrant INPATIENT care.: Yes I certify that my determination is in accordance with my understanding of Medicare's requirements for reasonable and necessary INPATIENT services [42 CFR 412.3e].: Yes Medical Necessity: Need Close Monitoring Due to Risk of Patient Decompensation, Need For IV Fluids, Need For Continuous Telemetry Monitoring, Need for IV Antibiotics, Risk of Complication if Not Cared For in Hospital Post Hospital Care: D/C or Transfer Summary - Plan Summary Plan Summary: D/C IV Primaxin. Start on oral Nitrofurantoin 100 mg po bid. Maintain on all other current medication management. Possible transfer to SNF tomorrow for short term rehabilitation.
[2018-01-28] MEDS: RISPERIDONE 0.25 MG TABLET PO SCH (21:09)
[2018-01-28] MEDS: SIMVASTATIN 40 MG TABLET PO SCH (21:10)
[2018-01-28] MEDS: PHARMACY COMMUNICATION ORDER MC SCH (21:10)
[2018-01-28] MEDS ORDERED: NITROFURANTOIN MONOHYD/M-CRYST 100 MG CAPSULE PO ONE (22:00)
[2018-01-29] MEDS: HYDROCODONE/ACETAMINOPHEN 5-325 MG TABLET PO PRN ×3 (04:04→13:14)
[2018-01-29] MEDS: LANSOPRAZOLE 30 MG TAB.RAP.DR PO SCH (05:30)
[2018-01-29] MEDS: DONEPEZIL HCL 5 MG TABLET PO SCH (09:49)
[2018-01-29] MEDS: LIDOCAINE 5% (700 MG) TRANSDERMAL ADH..PATCH TOP SCH (09:49)
[2018-01-29] MEDS: ATENOLOL 50 MG TABLET PO SCH (09:49)
[2018-01-29] MEDS: FLUOXETINE HCL 20 MG CAPSULE PO SCH (09:49)
[2018-01-29] MEDS: ENOXAPARIN SODIUM INJ 40 MG/0.4 ML DISP.SYRIN SUBCUT SCH (09:50)
[2018-01-29] MEDS: AZILSARTAN PO SCH (09:50)
[2018-01-29] MEDS: CHLORTHALIDONE PO SCH (09:50)
[2018-01-29] MEDS ORDERED: NITROFURANTOIN MONOHYD/M-CRYST 100 MG CAPSULE PO SCH (10:00)
--- NOTE | 2018-01-29 14:53 | PDOC TRANSFER SUMMARY ---
General - Admit/Disc Date/PCP Admission Date/Primary Care Provider: 01/22/18 21:30 ELIZABETH WATTS Discharge Date: 01/29/18 - Discharge Diagnosis (1) Infection due to ESBL-producing Escherichia coli Is this a current diagnosis for this admission?: Yes (2) E. coli urinary tract infection Is this a current diagnosis for this admission?: Yes (3) Failure of outpatient treatment Is this a current diagnosis for this admission?: Yes (4) HTN (hypertension) Is this a current diagnosis for this admission?: Yes (5) HLD (hyperlipidemia) Is this a current diagnosis for this admission?: Yes (6) CAD S/P percutaneous coronary angioplasty Is this a current diagnosis for this admission?: Yes (7) Osteoarthritis involving multiple joints on both sides of body Is this a current diagnosis for this admission?: Yes (8) Chronic pain syndrome Is this a current diagnosis for this admission?: Yes (9) Chronic use of opiate for therapeutic purpose Is this a current diagnosis for this admission?: Yes (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 Is this a current diagnosis for this admission?: Yes - Additional Information Resuscitation Status: Do Not Resuscitate Prescriptions: Nitrofurantoin Monohyd/M-Cryst [Macrobid 100 mg Capsule] 100 mg PO Q12 #10 capsule Home Medications: Azilsartan Med/Chlorthalidone [Edarbyclor 40-12.5 mg Tablet] 1 tab PO DAILY Donepezil HCl [Aricept 5 mg Tablet] 5 mg PO DAILY 04/23/17 Fluoxetine HCl [Prozac] 40 mg PO DAILY 04/23/17 Mometasone Furoate [Nasonex] 2 spray NASL DAILY 04/23/17 Risperidone [Risperdal] 0.5 mg PO QHS 04/23/17 Hydrocodone Bitartrate [Hysingla ER] 40 mg PO DAILY #30 tab.er.24h 04/27/17 Simvastatin [Zocor 40 mg Tablet] 40 mg PO DAILY #30 tablet 04/27/17 Atenolol [Tenormin] 50 mg PO DAILY 01/22/18 Hydrocodone/Acetaminophen [Hydrocodone-Acetamin 7.5-325] 1 tab PO Q12HP PRN Nitrofurantoin Monohyd/M-Cryst [Macrobid 100 mg Capsule] 100 mg PO Q12 #10 capsule 01/29/18 History of Present Illness Admission Date/PCP: 01/22/18 21:30 ELIZABETH WATTS History of Present Illness: KATRIN FELTON is a 82 year old female known to my practice who presented to the office earlier today with daughter reporting worsening confusion with patient more out of turn in her responses than baseline and starring at the wall as if in trance. Daughter reported complince with prescribed oral antibiotic for recently diagnosed UTI. Her urine culture was reported growing ESBL E. coli with colonies in excess of 100,000 / mL and sensitive to prescribed Augmentin. Daughter denied any fever or chills, nausea, vomiting or abdominal pain. P.O intake remain poor. Her CBC in the office revealed worsening leukocytosis over 20,000. In view of her failure on oral antibiotic she was advised hospitalization. Due to unavailable inpatient bed, patient was seen in the ED and commence of IV antibiotic therapy. Her morbidities include hypertension, Hyperlipidemia, Senile Dementia with psychosis, Mixed Anxiety with Depression, Osteoarthritis with multiple joints involvement and Chronic Pain Syndrome, CAD s/p stent angioplasty, and seasonal allergic rhinitis. Hospital Course Hospital Course: Patient was treated with IV Primaxin for E.Coli ESBL for 5 days. She was transition to oral Nitrofurantoin therapy for 5 more days. She will be discharged to [facility] [place] today for short term rehabilitation. She will follow up in the office upon discharge from the intermediate. Physical Exam Vital Signs: Temp Pulse Resp BP Pulse Ox 98.7 F 68 17 186/75 H 99 01/29/18 12:00 01/29/18 12:00 01/29/18 12:00 01/29/18 12:00 01/29/18 12:00 Intake & Output 01/28/18 01/29/18 01/30/18 06:59 06:59 06:59 Intake Total 1240 466 Output Total 3 Balance 1237 466 Weight 84.5 kg 79.8 kg General appearance: PRESENT: no acute distress, obese Head exam: PRESENT: atraumatic, normocephalic Eye exam: PRESENT: conjunctiva pink, EOMI, PERRLA. ABSENT: scleral icterus Ear exam: PRESENT: normal external ear exam Mouth exam: PRESENT: moist Respiratory exam: PRESENT: clear to auscultation regina Cardiovascular exam: PRESENT: RRR. ABSENT: diastolic murmur, rubs, systolic murmur Vascular exam: ABSENT: pallor GI/Abdominal exam: PRESENT: normal bowel sounds, soft. ABSENT: distended, guarding, mass, organomegaly, rebound, tenderness Extremities exam: ABSENT: pedal edema Musculoskeletal exam: PRESENT: deformity - related to multiple joints involvement with arthritis. Neurological exam: PRESENT: alert, awake, oriented to person, oriented to place , oriented to time, oriented to situation, CN II-XII grossly intact. ABSENT: motor sensory deficit Psychiatric exam: PRESENT: appropriate affect, normal mood. ABSENT: homicidal ideation, suicidal ideation Skin exam: PRESENT: dry, intact, warm. ABSENT: cyanosis, rash Results Laboratory Results: 01/24/18 04:40 01/24/18 04:40 Transfer Plan - Disposition Transfer Plan: D/C to [facility] [place] for short term rehabilitation. Qualifiers - * PATIENT BEING DISCHARGED WITH ANY OF THE FOLLOWING DIAGNOSIS: No Plan Discharge Plan: D/C to [facility] [place] for short term rehabilitation. Follow up in the office upon discharge from the SNF.
[2018-01-29 16:10] VITALS: BP 174/66
== END 2018-01-29 15:20 | DRG 690 ==
LOC: ER 15:36 → EH 21:30 → 4S 01-23 00:25
PROVIDERS: ADMIT Internal Medicine Geriatric Medicine; ATTEND Internal Medicine Geriatric Medicine
DX: N39.0 Urinary tract infection, site not specified (principal); F05 Delirium due to known physiological condition; B96.20 Unspecified Escherichia coli [E. coli] as the cause of diseases classified elsewhere; I10 Essential (primary) hypertension; E78.00 Pure hypercholesterolemia, unspecified; I25.10 Atherosclerotic heart disease of native coronary artery without angina pectoris; M15.3 Secondary multiple arthritis; G89.4 Chronic pain syndrome; F41.3 Other mixed anxiety disorders; F32.9 Major depressive disorder, single episode, unspecified; J30.2 Other seasonal allergic rhinitis; Z79.891 Long term (current) use of opiate analgesic; Z79.899 Other long term (current) drug therapy; Z95.5 Presence of coronary angioplasty implant and graft
CPT/HCPCS: 36415; 51701; 80048; 80053; 81001; 82803; 82962; 83605; 85025; 85610; 87040; 87086; 87088; 87186; 93005; 93010; 99284; G8978-GP; G8979-GP; J0696; J0743; J1650; J3490; J7030; J8499